=== PATIENT | female | born 1995 | race Caucasian/White ===

== ENCOUNTER 2018-04-02 03:48 | Emergency (ER) | payer SELFPAY ==
[2018-04-02 03:51] VITALS: BP 156/83; PULSE 98; RESP 14; TEMP 36.9; O2SAT 98; BMI 40.6
--- NOTE | 2018-04-02 03:56 | ED.RN ---
no old ekg's in [facility]
--- NOTE | 2018-04-02 04:14 | CT_ITS ---
STUDY: CTA CHEST REASON FOR EXAM: Female, 23 years old. New-onset of shortness of breath. 27 weeks . RADIATION DOSAGE (If Supplied By Facility): CTDIvol = ( 12.80 ) mGy, DLP = ( 620.84 ) mGycm TECHNIQUE: The examination was performed with the intravenous administration of 100ML ml of Isovue 370 contrast material. Post-processing of the angiographic images was performed, with multiplanar reformation and 3D reconstruction. Individualized dose optimization techniques were used for this CT. COMPARISON: None. FINDINGS: Normal enhancement of the main pulmonary artery and right and left pulmonary arteries. Normal enhancement of the bilateral peripheral pulmonary arteries. There is no demonstrated pulmonary embolism accounting for artifact. Normal thoracic aorta and visualized great vessels. There is no demonstrated aortic dissection. Normal heart and pericardium. Normal mediastinum. Normal hilar regions. Normal visualized trachea and bronchi. The lungs are well expanded. Normal pulmonary parenchyma. Hazy density throughout the lungs is very likely related to a decreased depth of inspiration. The lungs are clear on the regional rehabilitation director view. Normal pleura. Normal chest wall structures. Normal osseous structures. A small portion of the gestational sac and fetus are visualized in the abdomen. CT/CTA Chest W/WO Contrast IMPRESSION: Normal CTA chest examination, without a demonstrated pulmonary embolism or arterial dissection. Lungs are hypoinflated. Appearance of the lung is very likely related to subsegmental atelectasis and not pulmonary edema. Electronically Signed: Evangelista Gan MD at 5:37 EDT , Service support ,
--- NOTE | 2018-04-02 04:15 | ED.VISSUMM ---
- ER Visit Summary Date of Service: 04/02/18 Chief Complaint: Chest pain History of Present Illness: The patient is a 23 F presenting with chest pain, shortness of breath which started around 3 AM. She believes it lasted approximately 30 minutes. She states she is having pain with deep breathing. She has had similar pain with acid reflux in the past. She takes a natural remedy for acid reflux. She is 27 weeks . She denies abdominal pain. Denies vaginal bleeding. She is . She states the pain is starting to subside. Denies recent travel, recent surgery, or history of blood clots. Denies other complaints. Physical Examination: Vitals are stable. Patient is afebrile. Alert no acute distress. HEENT exam is unremarkable. Neck is supple. Lungs are clear and equal bilaterally. Heart is regular rate and rhythm. Abdomen is soft gravid nontender Extremities are unremarkable. Skin is warm and dry. No focal neurologic deficit. Remainder of exam is unremarkable. Emergency Department Course and Treatment: EKG is sinus rate of 85 with no acute ischemic changes. heart tones 134. CTA chest shows normal CTA chest examination, without a demonstrated pulmonary embolism or arterial dissection. Patient is resting comfortably on repeat evaluation. She is advised to follow-up with her MANAGEMENT ACCOUNTS MANAGER. Advised return to ED for any worsening complaints. Disposition: Discharged home Impression: Atypical chest pain This note was generated with [employer] dictation software. It may contain incorrect words, spelling, and punctuation that were not noted in review of the chart prior to signing ED Disposition - Plan for ED Patient: Chief Complaint: Chest Pain Referrals: [facility] Doctor,Out of [NON-STAFF] -
--- NOTE | 2018-04-02 05:50 | ED.DEP ---
ED Disposition - Plan for ED Patient: Chief Complaint: Chest Pain Instructions: ED Chest Pain Atypical Unkn Cause Referrals: [facility],Out of [NON-STAFF] -
[2018-04-02 05:56] VITALS: BP 135/74; PULSE 66; RESP 15; O2SAT 97
== END 2018-04-02 05:57 | disposition home or self-care (01) ==
PROVIDERS: Emergency Provider Emergency Medicine; Family Provider Family Medicine; PCP Family Medicine
DX: O26.892 Other specified pregnancy related conditions, second trimester (principal); R07.89 Other chest pain; Z3A.27 27 weeks gestation of pregnancy
CPT/HCPCS: 71275; 93005; 99285; Q9967; A4216

== ENCOUNTER 2018-10-09 03:58 | Emergency (ER) | payer SELFPAY ==
[2018-10-09 03:59] VITALS: BP 143/78; PULSE 94; RESP 18; TEMP 36.5; O2SAT 94; BMI 35.7
--- NOTE | 2018-10-09 04:12 | US_ITS ---
STUDY: ABDOMINAL ULTRASOUND - RIGHT UPPER QUADRANT REASON FOR VISIT: Female, 23 years old. Pain. TECHNIQUE: Ultrasound evaluation of the right upper quadrant was performed with real-time and static selby-scale imaging. TECHNICAL QUALITY: Limited. Examination limited by bowel gas. COMPARISON: CTA chest 04/02/2018. FINDINGS: Liver: The liver measures 16.1 cm. There is normal echogenicity of the liver. The bile ducts are within normal limits. There is hepatic color flow. The direction of portal flow is hepatopetal. There is no demonstrated mass lesion. Gallbladder: Normal distended gallbladder. The gallbladder wall measures 2.0 mm. There is a negative sonographic Bee's sign. There is no pericholecystic fluid. There are multiple gallstones and sludge in the gallbladder, including at least one stone that is in the gallbladder neck. Common Bile Duct (C.B.D.): The common bile duct measures 9.0 mm. Pancreas: . Not well visualized. Right Kidney: Normal size of the right kidney. The right kidney measures 10.1 x 5.1 x 5.2 cm. Normal renal cortex. The right cortex measures 1.3 cm. There is no demonstrated renal mass or cyst. There is no right hydronephrosis. US/Gallbladder IMPRESSION: Gallstones and sludge in an otherwise normal-appearing gallbladder. Dilated common bile duct, measuring 9 mm. Electronically Signed: Luis M Castellon MD at 7:08 EST , Service support ,
[2018-10-09] MEDS: Ondansetron 4 MG/2 ML Vial IV (04:23)
[2018-10-09] MEDS: Ketorolac 30 MG/ML Syringe IV (04:23)
[2018-10-09] MEDS: 0.9% Normal Saline 1,000 ML 1000 ML IV (04:23)
[2018-10-09 04:49] LABS: Absolute Lymphocyte Count 0.59 X10^3/ul (0.83-4.51); Absolute Neutrophil Count 4.5 X10^3/uL (2.0-7.7); Basophil# 0.01 X10^3/uL; Basophil% 0.2 % (0-1); Eosinophil# 0.04 X10^3/uL; Eosinophils% 0.7 % (0-5); Hematocrit 41.9 % (37-47); Hemoglobin 14.4 g/dl (12.0-15.0); Lymphocyte # 0.59 X10^3/ul (4.0); Lymphocyte % 10.4 % (19-41); Mean Corp Hgb Conc 34.4 g/gl (32-36); Mean Corpuscular Hgb 29.5 pg (27.0-32.0); Mean Corpuscular Volume 85.9 fL (81-99); Monocyte# 0.52 X10^3/uL; Monocyte% 9.1 % (0-10); Neutrophil # 4.51 X10^3/uL (2.7-7.7); Neutrophil % 79.2 % (47-70); Platelet Count 198 K/mm3 (150-450); RBC Distribution Width CV 13.9 % (11.6-14.6); RBC Distribution Width SD 43.6 fl (35.1-43.9); Red Blood Count 4.88 M/mm3 (4.2-5.4); White Blood Count 5.7 K/mm3 (4.4-11.0)
[2018-10-09 04:55] LABS: Differential Indicated SCAN CRITERIA MET; POSITIVE COUNT NO; POSITIVE DIFFERENTIAL YES; POSITIVE MORPHOLOGY NO
[2018-10-09 06:04] LABS: AST(SGOT) 660 U/L (15-37); Alanine Aminotransfer ALT/SGPT 804 U/L (13-56); Alkaline Phosphatase 206 U/L (45-117); Anion Gap 11 (5-15); BUN 10 mg/dL (7-18); BUN/Creat Ratio 15.6 RATIO (10-20); Chloride 108 mmol/L (98-107); Creatinine, Serum 0.64 mg/dL (0.55-1.02); EST Glomerular Filtration Rate 123 mL/min (>60); Est Glom Filt Rate - Afr Amer 149 mL/min (>60); Estimated Creatinine Clearance 109.97 ml/min; Glucose 109 mg/dL (74-106); Lipase 180 U/L (73-393); Potassium 3.7 mmol/L (3.5-5.1); Sodium Level 142 mmol/L (136-145)
[2018-10-09] MEDS: Morphine 4 MG/ML Syringe IV (07:35)
[2018-10-09 07:36] VITALS: BP 153/93; PULSE 76; RESP 16; O2SAT 100
--- NOTE | 2018-10-09 08:00 | ED.VISSUMM ---
- ER Visit Summary Date of Service: 10/09/18 Chief Complaint: Abdominal pain History of Present Illness: The patient is a 23 F who presents with abdominal pain. It began yesterday. It is isolated to the right upper quadrant. It was a 10 out of 10 yesterday morning but has actually improved since then. It is currently 6 out of 10. No nausea vomiting or diarrhea. Physical Examination: Afebrile vitals unremarkable Moist mucous membranes Heart regular rate and rhythm Lungs are clear On the soft nondistended normal bowel sounds she does have right upper quadrant tenderness without guarding rebound no Bee sign Test Results: Labs notable for total bilirubin 4.7, alkaline phosphatase 206, ALT 804, AST 660. Right upper quadrant ultrasound shows a dilated common bile duct at 9 mm as well as gallstones and biliary sludge with an otherwise normal appearing gallbladder. Emergency Department Course and Treatment: Patient was treated here with IV fluids morphine Zofran. She did require a second dose of morphine. Her labs are concerning for biliary obstruction. With dilated common bile duct I am concerned for choledocholithiasis. I spoke to our general surgeon store operations manager. Dr. Jorge who is the only surgeon who performs ERCPs is unavailable until next week so Dr. Cohen committed transfer. She accepted at [facility] under the medical service Treatment Plan: [] Disposition: Transfer Impression: Cholelithiasis Biliary obstruction This note was generated with [employer] dictation software. It may contain incorrect words, spelling, and punctuation that were not noted in review of the chart prior to signing ED Disposition - Plan for ED Patient: Referrals: Darci Perez MD [Primary Care Provider] -
--- NOTE | 2018-10-09 08:03 | ED.DCSUM_ITS ---
- ER Visit Summary Date of Service: 10/09/18 Chief Complaint: Abdominal pain History of Present Illness: The patient is a 23 F who presents with abdominal pain. It began yesterday. It is isolated to the right upper quadrant. It was a 10 out of 10 yesterday morning but has actually improved since then. It is currently 6 out of 10. No nausea vomiting or diarrhea. Physical Examination: Afebrile vitals unremarkable Moist mucous membranes Heart regular rate and rhythm Lungs are clear On the soft nondistended normal bowel sounds she does have right upper quadrant tenderness without guarding rebound no Bee sign Test Results: Labs notable for total bilirubin 4.7, alkaline phosphatase 206, ALT 804, AST 660. Right upper quadrant ultrasound shows a dilated common bile duct at 9 mm as well as gallstones and biliary sludge with an otherwise normal appearing gallbladder. Emergency Department Course and Treatment: Patient was treated here with IV fluids morphine Zofran. She did require a second dose of morphine. Her labs are concerning for biliary obstruction. With dilated common bile duct I am concerned for choledocholithiasis. I spoke to our general surgeon environmental health sanitarian. Dr. Jorge who is the only surgeon who performs ERCPs is unavailable until next week so Dr. Cohen committed transfer. She accepted at [facility] under the medical service Treatment Plan: [] Disposition: Transfer Impression: Cholelithiasis Biliary obstruction This note was generated with [email or web address] dictation software. It may contain incorrect words, spelling, and punctuation that were not noted in review of the chart prior to signing ED Disposition - Plan for ED Patient: Referrals: Darci Perez MD [Primary Care Provider] -
[2018-10-09 08:42] VITALS: BP 136/69; PULSE 74; RESP 16; O2SAT 97
== END 2018-10-09 09:17 | disposition short-term general hospital (02) ==
LOC: ED 04:19
PROVIDERS: Emergency Provider Emergency Medicine; Family Provider Family Medicine; PCP Family Medicine
DX: K80.21 Calculus of gallbladder without cholecystitis with obstruction (principal)
CPT/HCPCS: 36415; 76705; 80053; 83690; 85025; 96361; 96374; 96375; 99284; J7030; A4216; J2405

== ENCOUNTER 2018-10-10 21:17 | Inpatient (IN) | payer SELFPAY ==
[2018-10-09 03:59] VITALS: BMI 35.7
[2018-10-10 21:19] VITALS: BP 149/90; PULSE 77; RESP 12; TEMP 36.8; O2SAT 99; BMI 35.6
--- NOTE | 2018-10-10 21:59 | ED.DCSUM_ITS ---
- ER Visit Summary Date of Service: 10/10/18 Chief Complaint: Abdominal pain History of Present Illness: The patient is a 23 F presents to the emergency department abdominal pain. The patient has had a complex recent medical history. She was actually seen here about 36 hours ago. At that time, she was found to have choledocholithiasis and elevated liver function tests. The patient was transferred to [facility]. This morning, she underwent MRCP. This demonstrated a normal duct and looked like she had passed her obstruction. She states she was pain-free. She was discharged home and was told to follow-up outpatient with surgery. She has not made any appointments. She states that about 2 hours ago, she had sudden return of the pain. She describes it as sharp and stabbing in the midepigastric area in the right upper quadrant. She was mildly nauseated without vomiting. She denies any fevers or chills. The patient is otherwise healthy. She has no significant medical history. She had no prior surgeries. Physical Examination: Vital signs reviewed General: Well-nourished, well-developed Head: Normocephalic, atraumatic Eyes: Pupils equal and reactive, extraocular muscles intact Neck, supple, no lymphadenopathy Heart: Regular rate and rhythm Respiratory: No distress, clear bilaterally Abdomen: Soft, tender in the midepigastric area to the right upper quadrant, nondistended, no peritoneal signs Back: Nontender Extremities: Nontender, no edema, no cords Skin: Normal color no rash Neuro: Alert and oriented, no focal or lateralizing deficits Test Results: [] Emergency Department Course and Treatment: The patient presents with abdominal pain. I did review her MRCP and there was no evidence of obstruction. The pain returned. I did discuss this with Dr. Tejada who actually is evaluated patient in the emergency department. The pain will be to admit the patient for antibiotics, fluids, pain medication with plan for Cholecystectomy on Saturday. Patient was comfortable with this plan of care. Treatment Plan: [] Disposition: [] Impression: Admission 1. Cholecystitis This note was generated with [employer] dictation software. It may contain incorrect words, spelling, and punctuation that were not noted in review of the chart prior to signing ED Disposition - Plan for ED Patient: Referrals: Darci Perez MD [Primary Care Provider] -
--- NOTE | 2018-10-10 22:25 | HP.PCM_ITS ---
History and Physical Date of Admission: 10/10/18 Chief Complaint: abdominal pain History of Present Illness: 23 y/o WF presents with abdominal pain - right upper quadrant. Has noted intermittent abdominal pain as above for about a year, but has been progressively worsening and becoming more frequent Worsened in the past several days. Presented to ED at another facility. From the family - she was found to have cholelithiasis but there was concern for CBD obstruction. A MRCP was obtained which revealed no CBD obstruction. She was therefore discharged to follow up with a surgeon. The patient presented to [facility] ED, stating that the pain was very severe. Denies nausea/emesis. Denies fevers. Past Medical History: denies major medical illnesses Past Surgical History: denies Medications: denies taking chronic medications, was placed on antiacid medications for the above condition Allergies: Has no known drug allergies Social history: TOB use denies Lives with Review of Systems: General - denies fevers, denies weight loss, denies anorexia Cardiovascular denies chest pain, denies history of heart attack, denies heart problems Pulmonary denies shortness of breath, denies coughing up blood Gastrointestinal as per HPI, denies blood in stools Neurological denies numbness/weakness of extremities, denies seizures Genitourinary denies burning with urination, denies blood in urine Hematological denies spontaneous/prolonged bleeding, Skin denies open non healing wounds, Musculoskeletal denies history of fractures, denies arthritis Endocrine denies diabetes Psychological denies suicidal ideation, denies hallucinations Physical examination: Vital signs Temp 97.7F HR 58 BP 137/84 RR 16 General WD/WN WF in no apparent distress, alert and oriented, not septic appearing HEENT Normocephalic. EOM intact with sclera clear and no icterus noted. Neck is supple with no jugular venous distention noted. Trachea is midline. Lungs clear to auscultation. normal breath sounds. No rales/rhonchi/wheezing noted. No labored breathing noted, such as retractions. Heart normal S1 and S2 auscultated. No rubs/clicks/murmurs noted. Normal size and location by auscultation. Abdomen soft but tender in right upper quadrant with Bee's sign. Normal bowel sounds area auscultated. No distention or tympany noted. Extremities no calf tenderness noted. No pitting edema noted. Genitourinary/Rectal deferred Skin normal skin integrity. Neurological gait normal, no focal deficits noted Psychological normal affect, patient is calm and appropriate Impression: acute cholecystitis (based on examination and severe pain) with cholelithiasis Discussion/Plan: I have discussed the above with the patient and her who is present with her. The patient has signs/symptoms of acute cholecystitis with cholelithiasis. I have offered the patient the procedure of laparoscopic cholecystectomy with cholangiograms I told them that it will not be done tonight, that I will admit the patient for overnight hydration and pain control and I will reassess the patient in the morning. If not urgent - then would proceed to surgery on Saturday. They understand and agree. I have answered all questions to the patient?s satisfaction and the patient has no further questions.
[2018-10-10] MEDS: Ondansetron 4 MG/2 ML Vial IV (22:37)
[2018-10-10] MEDS: 0.9% Normal Saline 1,000 ML 1000 ML IV (22:37)
[2018-10-10] MEDS: Morphine 4 MG/ML Syringe IV (22:37)
[2018-10-10 22:47] LABS: Absolute Lymphocyte Count 1.53 X10^3/ul (0.83-4.51); Absolute Neutrophil Count 6.7 X10^3/uL (2.0-7.7); Basophil# 0.03 X10^3/uL; Basophil% 0.3 % (0-1); Eosinophil# 0.13 X10^3/uL; Eosinophils% 1.4 % (0-5); Hematocrit 41.1 % (37-47); Lymphocyte # 1.53 X10^3/ul (4.0); Lymphocyte % 16.8 % (19-41); Mean Corp Hgb Conc 34.1 g/gl (32-36); Mean Corpuscular Hgb 29.7 pg (27.0-32.0); Mean Corpuscular Volume 87.3 fL (81-99); Mean Platelet Vol. 10.8 fl (6.2-12.0); Monocyte# 0.73 X10^3/uL; Neutrophil # 6.69 X10^3/uL (2.7-7.7); Neutrophil % 73.4 % (47-70); Platelet Count 181 K/mm3 (150-450); RBC Distribution Width CV 13.9 % (11.6-14.6); RBC Distribution Width SD 44.5 fl (35.1-43.9); Red Blood Count 4.71 M/mm3 (4.2-5.4); White Blood Count 9.1 K/mm3 (4.4-11.0)
[2018-10-10 23:04] LABS: POSITIVE COUNT NO; POSITIVE DIFFERENTIAL NO; POSITIVE MORPHOLOGY NO
[2018-10-10 23:10] LABS: AST(SGOT) 148 U/L (15-37); Alanine Aminotransfer ALT/SGPT 549 U/L (13-56); Albumin, Serum 3.9 g/dL (3.2-5.0); Alkaline Phosphatase 266 U/L (45-117); Anion Gap 11 (5-15); BUN 11 mg/dL (7-18); BUN/Creat Ratio 16.3 RATIO (10-20); Bilirubin, Direct 3.23 mg/dL (0.00-0.30); Chloride 105 mmol/L (98-107); Creatinine, Serum 0.68 mg/dL (0.55-1.02); EST Glomerular Filtration Rate 116 mL/min (>60); Est Glom Filt Rate - Afr Amer 141 mL/min (>60); Estimated Creatinine Clearance 103.51 ml/min; Globulin 3.8 g/dL (2.2-4.2); Glucose 85 mg/dL (74-106); Lipase 113 U/L (73-393); Potassium 3.5 mmol/L (3.5-5.1); Protein, Total 7.7 g/dL (6.4-8.2); Sodium Level 139 mmol/L (136-145)
[2018-10-10 23:15] VITALS: BP 142/73; PULSE 74; RESP 16; O2SAT 99
[2018-10-10 23:24] VITALS: BMI 35.6; BMI 35.7
[2018-10-10 23:40] VITALS: BP 137/84; PULSE 58; RESP 16; TEMP 36.5; O2SAT 100
[2018-10-10] MEDS: HYDROcodone Bitartrate/Apap 5/325 Tablet PO (23:46)
[2018-10-11 03:48] VITALS: BP 102/61; PULSE 56; RESP 16; TEMP 36.4; O2SAT 97
[2018-10-11 09:27] VITALS: BP 130/72; PULSE 55; RESP 18; TEMP 36.7; O2SAT 100
--- NOTE | 2018-10-11 09:37 | PCM.PN.SRG ---
Subjective: patient feels much improved, feels hungry - Physical Exam General: Alert, Oriented x3 Oral: Moist Mucosa Neck: Supple Lungs: Normal air movement Abdomen: Bowel Sounds Present, Soft Vital Signs Temp Pulse Resp BP Pulse Ox 98.1 F 55 L 18 130/72 H 100 10/11/18 09:27 10/11/18 09:27 10/11/18 09:27 10/11/18 09:27 10/11/18 09:27 Oxygen Delivery Method Room Air Weight: 88.5 kg Body Mass Index (BMI) 35.6 Intake and Output for Last 24 Hours 10/09/18 10/10/18 10/11/18 23:59 23:59 23:59 Intake Total 1340 / 1340 Output Total 400 / 400 Balance 940 / 940 Laboratory Tests Past 24 Hrs 10/10/18 10/10/18 22:37 22:37 WBC 9.1 RBC 4.71 Hgb 14.0 Hct 41.1 MCV 87.3 MCH 29.7 MCHC 34.1 RDW 13.9 RDW Differential 44.5 H Plt Count 181 MPV 10.8 Immature Gran % (Auto) 0.100 Neut % (Auto) 73.4 H Lymph % (Auto) 16.8 L Branch % (Auto) 8.0 Eos % (Auto) 1.4 Baso % (Auto) 0.3 Absolute Neuts (auto) 6.7 Absolute Lymphs (auto) 1.53 Total Counted Not Reportable Sodium 139 Potassium 3.5 Chloride 105 Carbon Dioxide 23.0 Anion Gap 11 BUN 11 Creatinine 0.68 Estim Creat Clear Calc 103.51 Est GFR (MDRD) Af Amer 141 Est GFR (MDRD) Non-Af 116 BUN/Creatinine Ratio 16.3 Glucose 85 Calcium 9.0 Total Bilirubin 5.60 H Direct Bilirubin 3.23 H AST 148 H ALT 549 H Alkaline Phosphatase 266 H Total Protein 7.7 Albumin 3.9 Globulin 3.8 Lipase 113 Medical Necessity - Tobacco Use Smoking Status: Never smoker Assessment/Plan Impression: cholecystitis with cholelithiasis - no obstruction, severe pain due to biliary colic but patient may have chronic cholecystitis Plan: I have discussed above with patient and her . Given the fact that she feels much improved, I have offered for the patient to be discharged home and then return on Saturday for laparoscopic cholecystectomy. Patient wishes to stay in the hospital, because she is concerned about the pain returning and states that she could not tolerate that. There is no urgency to this surgery, can wait until Saturday. Will empirically begin IV antibiotics. Advance to full diet, continue IV pain meds, encouraged ambulation and incentive spirometry
--- NOTE | 2018-10-11 11:01 | CASEMGMT ---
Social Work Self referral for patient noting to be self pay. This child protective services social worker reviewed chart and then met with patient and patient spouse in room. Patient reporting to identify at [facility] and to have no financial concerns and reporting that all medical bills will be covered by [facility] through the cheondoism. Patient reporting to plan to be in hospital at least until Saturday when patient is scheduled for surgery. Patient reporting to have a 4 month year old son at home and that the in-laws are providing care for the . Patient reporting no concerns and plans to discharge to home with family at time of discharge. Patient identifying no needs at this time. Support given. Lili Mooney MSW, ANDREA
[2018-10-11] MEDS: Lactated Ringers 1,000 ML 75 ML IV (12:51)
[2018-10-11] MEDS: HYDROcodone Bitartrate/Apap 5/325 Tablet PO ×2 (13:13→18:45)
[2018-10-11 13:50] VITALS: BP 132/90; PULSE 83; RESP 18; TEMP 36.6; O2SAT 99
[2018-10-11 17:21] VITALS: BP 137/84; PULSE 56; RESP 18; TEMP 36.6; O2SAT 98
[2018-10-11] MEDS: Morphine 2 MG/ML Syringe IV (20:14)
[2018-10-11 21:14] VITALS: BP 129/70; PULSE 78; RESP 16; TEMP 36.8; O2SAT 98
[2018-10-12] MEDS: Lactated Ringers 1,000 ML 75 ML IV ×2 (03:38→21:46)
[2018-10-12 03:42] VITALS: BP 128/75; PULSE 65; RESP 16; TEMP 36.3; O2SAT 98
[2018-10-12 06:16] LABS: AST(SGOT) 105 U/L (15-37); Alanine Aminotransfer ALT/SGPT 375 U/L (13-56); Alkaline Phosphatase 254 U/L (45-117); Bilirubin, Direct 3.14 mg/dL (0.00-0.30); Globulin 3.3 g/dL (2.2-4.2); Protein, Total 6.3 g/dL (6.4-8.2)
[2018-10-12 08:15] VITALS: BP 147/103; PULSE 66; RESP 16; TEMP 36.6; O2SAT 97
[2018-10-12] MEDS: HYDROcodone Bitartrate/Apap 5/325 Tablet PO ×4 (08:18→21:52)
--- NOTE | 2018-10-12 10:32 | PCM.PN.SRG ---
Subjective: Patient feeling well, still intermittent twinges of abdominal pain Feels hungry, had bowel movement this morning - first in a few days - Physical Exam General: Alert Oral: Moist Mucosa Neck: Supple Lungs: Normal air movement Cardiovascular: Regular rate Abdomen: Bowel Sounds Present, Soft - tender in right upper quadrant Vital Signs Temp Pulse Resp BP Pulse Ox 97.9 F 66 16 147/103 H 97 10/12/18 08:15 10/12/18 08:15 10/12/18 08:15 10/12/18 08:15 10/12/18 08:15 Oxygen Delivery Method Room Air Weight: 88.5 kg Body Mass Index (BMI) 35.6 Intake and Output for Last 24 Hours 10/10/18 10/11/18 10/12/18 23:59 23:59 23:59 Intake Total 3774 / 3774 454 / 454 Output Total 800 / 800 Balance 2974 / 2974 454 / 454 Laboratory Tests Past 24 Hrs 10/12/18 05:45 Total Bilirubin 4.90 H Direct Bilirubin 3.14 H AST 105 H ALT 375 H Alkaline Phosphatase 254 H Total Protein 6.3 L Albumin 3.0 L Globulin 3.3 Medical Necessity - Tobacco Use Smoking Status: Never smoker Assessment/Plan Impression: cholecystitis with cholelithiasis - no obstruction, severe pain due to biliary colic but patient may have chronic cholecystitis Plan: I have discussed above with patient. Still with elevated LFTs, despite normal MRCP. May require ERCP after surgery. Will proceed to lap cas with IOC tomorrow, if IOC positive for stones, will have ERCP done while she is still inpatient. Advance to regular diet but NPO tomorrow am in anticipation for surgery Continue IV antibiotics encouraged ambulation and incentive spirometry
[2018-10-12 12:24] VITALS: BP 139/87; PULSE 67; RESP 16; TEMP 36.6; O2SAT 98
[2018-10-12] MEDS: Morphine 2 MG/ML Syringe IV ×2 (14:31→19:40)
[2018-10-12 17:24] VITALS: BP 137/88; PULSE 68; RESP 16; TEMP 36.6; O2SAT 98
[2018-10-12 21:53] VITALS: BP 131/73; PULSE 82; RESP 18; TEMP 36.5; O2SAT 96
[2018-10-13] VITALS (11 sets, daily range): BP systolic 131–155; BP diastolic 71–94; PULSE 60–84; RESP 14–16; TEMP 34.7–36.9; O2SAT 92–99; BMI 35.6
[2018-10-13] MEDS: 0.9% NaCl Peripheral Flush Adult/Peds IV (01:10)
[2018-10-13] MEDS: Morphine 2 MG/ML Syringe IV ×4 (01:10→20:01)
[2018-10-13 09:43] LABS: Internal QC Validated? YES +Cl - CLEAR BKGD; Pregnancy, Urine Negative Negative
[2018-10-13] MEDS: Ondansetron 4 MG/2 ML Vial IV (12:28)
--- NOTE | 2018-10-13 14:00 | GALL_PTH ---
PATIENT: KEIKO FOWLER LOC: MS2 U#:[id number] AGE/SX: 23/F ROOM: MS218 RE10/10/[address]: Dr. Francie Tejada MD : 1995 BED: 1 DIS: 10/15/2018 SPEC #: [id number] RECD: 10/14/18 08:23 STATUS: ZACH REQ #: [id number] MARY KAET: 10/13/18 14:[address]: Francie Tejada DEPT: SURGICAL PATHOLOGY RECD BY: Kee Scherer ENTERED: 10/14/18 12:17 SP TYPE: MAYTE SLAUGHTER DR: Dr. Darci Perez MD Tissues: Gallbladder, NOS Procedures: Surgery Specimen Level III HEADER OPERATION: Laparoscopic cholecystectomy with IOC PRE-OP DIAGNOSIS: Acute cholecystitis TISSUE SUBMITTED: Gallbladder MICROSCOPIC DIAGNOSIS Gallbladder, cholecystectomy: Chronic cholecystitis and cholelithiasis. SJ:mani 10/15/18 MICROSCOPIC DESCRIPTION Slides are reviewed. GROSS DESCRIPTION Received is one container labeled with the patient's name and designated gallbladder. The specimen consists of a gallbladder measuring 10 cm in length and up to 4 cm in diameter. The external surface is pink-zamudio, smooth and glistening for the most part. Focally it is granular, hemorrhagic and contains cautery artifact. The gallbladder contains green-yellow mucoid bile and six variable sized mulberry, yellowish-green stones measuring in aggregate 1.5 x 1 x 0.6 cm and 0.2 to 0.5 cm in greatest dimension. The mucosa is bile-stained and without any mass lesions. The gallbladder wall measures up to 0.2 cm in thickness. Equipment Hire Manager sections from the gallbladder and the cystic duct are submitted in one cassette. / SJ:mani 10/14/18 TC:3 CPT: 39412
--- NOTE | 2018-10-13 14:00 | RAD_ITS ---
STUDY: INTRAOPERATIVE INTRA CHOLANGIOGRAM. REASON FOR EXAM: Female, 23 years old. Laparoscopic cholecystectomy. FLUOROSCOPY TIME (if supplied): (0:02) minutes/seconds TECHNIQUE: An intraoperative cholangiogram was performed. COMPARISON: None. FINDINGS: Dilated common bile duct. No filling of the duodenum. A distal common bile duct obstruction should be ruled out. RAD/Cholangiogram/ O R,Initial IMPRESSION: Dilated common bile duct. No contrast is seen entering the duodenum. Distal ductal obstruction should be ruled out. Electronically Signed: Chago Mccormick MD at 16:03 EST , Service support ,
[2018-10-13] MEDS: Bupiv/Epi 0.25% 30 ML Vial (15:59)
--- NOTE | 2018-10-13 16:02 | OP.PCM_ITS ---
Report of Operation Date of Procedure: 10/13/18 Pre-Operative Diagnosis: cholelithiasis, elevated LFTs Post-Operative Diagnosis: same, CBD obstruction by IOC Surgery/Procedure Performed:: laparoscopic cholecystectomy with cholangiograms Description of Surgical Findings:: IOC - no flow into duodenum director of special services: Teodoro Thompson Type of Anesthesia:: General Anesthesiologist: Chai Irwin Specimen's removed: gallbladder and contents Estimated Blood Loss (mL): < 10 Fluids Replaced: 800 ml RL Description of Procedure: After informed consent was given, the patient was brought to the Operating Room. Appropriate time out protocol was followed. She was then placed in the supine position. The patient was then placed under general endotracheal anesthesia. The abdomen was then prepped with a sterile surgical skin preparation and sterile surgical drapes were placed. The superio-umbilical skin fold was grasped with penetrating clamps and the skin and subcutaneous tissues were infiltrated with local anesthetic. A skin incision was then made with a 15 blade scalpel. The anterior abdominal wall was elevated and a Veress needle was carefully inserted into the intraabdominal cavity. It was checked to be in the proper position with a normal saline drop test. A CO2 pneumoperitoneum was then created. Once this was achieved, then the Veress needle was removed and an 11mm trocar was placed in its stead. A 10mm laparoscope was then inserted into the trocar and careful attention was directed to the intraabdominal contents. There was no evidence of injury to any intraabdominal organs from insertion of the Veress needle or the trocar. Under direct visualization, a 5mm subxiphoid trocar and two lateral 5mm right subcostal trocars were placed. The skin and subcutaneous tissues at these sites were infiltrated with local anesthetic prior to placement of these trocars. Attention was then directed to the right upper quadrant of the abdomen. The gallbladder was grossly distended and also the wall was edematous. To be able to grasp the gallbladder, a needle aspirator was placed in the gallbladder to aspirate out its contents. Then graspers were placed in the lateral trocars to grasp the distal aspect of the gallbladder and direct it cephalad and to grasp the gallbladder at Dias?s pouch and direct it laterally. Dissection then began on the proximal gallbladder continuing down to the area of the triangle of Calot to bluntly dissect out the cystic duct. The neck of the gallbladder was identified and blunt dissection continued to dissect out a segment of the cystic duct. A clip was then placed on the neck of the gallbladder. A small ductotomy was then made. A Ranfac catheter was brought in through a separate skin incision and placed into the cystic duct. An intraoperative cholangiogram was performed under fluoroscopy. The xray revealed complete obstruction distally of the CBD with no flow into the duodenum. The Ranfac catheter was then removed and two clips were placed proximal to the ductotomy and the cystic duct was then transected. The cystic artery was visualized and bluntly isolated and then two clips were placed proximally and one clip distally and then it was transected between the proximal and distal clips. The gallbladder was then from the liver bed using electrocautery and thus able to be brought out of the umbilical port. It was then forwarded to pathology for analysis. The liver bed was carefully examined. There was no evidence of bile leakage or bleeding. The cystic duct stump and cystic artery stump had their clips intact and there was no evidence of bile leakage or bleeding. A 15FR round drain was brought in via one of the lateral trocars. The drainage was placed at the gallbladder fossa site. The remainder of the abdomen appeared grossly normal. The CO2 was released and all trocars removed intact. The drain was sutured to the abdominal wall skin with nylon suture. The periumbilical fascia was approximated with a [id number] 0 vicryl suture. All skin incisions were closed with 4-0 monocryl in a subdermal fashion. Cavilol and Steristrips were used to reinforce the skin closure. Sterile dressings were applied to all wounds. The patient was extubated and brought to the Recovery Room in stable condition. - Complications none noted - Admit VTE Documentation VTE Present on Admission: Yes VTE Mechan Device Prophylaxis: SCD's
[2018-10-13] MEDS: Lactated Ringers 1,000 ML 75 ML IV (17:49)
[2018-10-13] MEDS: HYDROcodone Bitartrate/Apap 5/325 Tablet PO (21:35)
[2018-10-14] VITALS (7 sets, daily range): BP systolic 123–141; BP diastolic 67–80; PULSE 64–85; RESP 16–18; TEMP 36.4–36.9; O2SAT 95–100
[2018-10-14] MEDS: HYDROcodone Bitartrate/Apap 5/325 Tablet PO ×2 (05:20→21:11)
[2018-10-14] MEDS: Lactated Ringers 1,000 ML 75 ML IV ×2 (05:26→21:14)
[2018-10-14] MEDS: Morphine 2 MG/ML Syringe IV ×2 (06:44→09:09)
[2018-10-14] MEDS: Ondansetron 4 MG/2 ML Vial IV (06:50)
--- NOTE | 2018-10-14 08:47 | PCM.PN.SRG ---
Subjective: Patient POD #1 s/p laparoscopic cholecystectomy with intraoperative cholangiogram demonstrating acute cholecystitis with CBD obstruction. Has ERCP scheduled for later this morning with Dr. Jorge. Patient awake and sitting at edge of bed at time of visit, notes was up and ambulating in hallway this morning. Had some nausea earlier this morning which was since resolved with medication. She notes some mild soreness at her incision sites and continued soreness in her right upper quadrant. Denies fever or chills overnight. - Physical Exam General: Alert, Oriented x3, Cooperative, No apparent distress, Well developed, Well nourished HEENT: Atraumatic, PERRLA Neck: Supple Lungs: Clear to auscultation, Normal air movement Cardiovascular: Regular rate, Regular Rhythm, Normal S1, Normal S2 Abdomen: Soft, Tender - RUQ, - - dressings in place over incisions c/d/i, drain site c/d/i with yellow serosanguinous output in bulb Vital Signs Temp Pulse Resp BP Pulse Ox 98.2 F 85 18 130/67 H 97 10/14/ 07:36 10/14/18 07:36 10/14/18 07:36 10/14/18 07:36 10/14/18 07:36 Oxygen Flow Rate (L/min) 2 Oxygen Delivery Method Room Air Weight: 195 lb 1.745 oz Body Mass Index (BMI) 35.6 Intake and Output for Last 24 Hours //19 //14 10/ 23:59 23:59 23:59 Intake Total 2456 / 2456 3701 / 3701 1133 / 1133 Output Total 160 / 160 40 / 40 Balance 2456 / 2456 3541 / 3541 1093 / 1093 Laboratory Tests Past 24 Hrs 10/13/ 09:10 Urine Test Negative Medical Necessity - Tobacco Use Smoking Status: Never smoker Assessment/Plan I have reviewed my findings with Dr. Tejada, who also participated in development of the following plan POD #1 s/p laparoscopic cholecystectomy with intraoperative cholangiogram showing distal CBD obstruction Plan for ERCP later today. Remain NPO for procedure Continue ambulation and incentive spirometer
[2018-10-14] MEDS: 0.9% NaCl Peripheral Flush Adult/Peds IV (09:09)
--- NOTE | 2018-10-14 09:58 | NURSING ---
PT TO [facility] FOR ENDO PROCEDURE. REPORT CALLED TO ASHANTI GIRALDO IN [facility].
--- NOTE | 2018-10-14 10:38 | PN_ITS ---
Progress Note Patient had intraoperative cholangiogram yesterday which showed no flow into the duodenum. This is consistent with her elevated LFTs. I do recommend ERCP. I described the procedure in detail to the patient. I included the risks of bleeding, infection, perforation of the bile duct or bowel, pancreatitis. I also explained that a stent may be required. I explained the procedure in detail and all questions were answered. Patient agrees to proceed with ERCP. Fransisco Jorge MD Pager: [facility] [address] [place] [address] Office:
--- NOTE | 2018-10-14 10:55 | RAD_ITS ---
CLINICAL HISTORY: Female, 23 years old. Pain. PROCEDURE: ERCP. FLUOROSCOPY TIME (if supplied): ( ) minutes/seconds TECHNIQUE: Fluoroscopic assistance was provided to Dr. Jorge. 1 fluoroscopic spot film is submitted. COMPARISON: Intraoperative cholangiogram October 13, 2018; right upper quadrant ultrasound October 09, 2018.. FINDINGS: With an endoscope in the second portion of the duodenum, the ampulla of Vater was cannulated for retrograde contrast injection. Contrast was injected. A guidewire is seen in the right hepatic duct and common bile duct. No flow of contrast is seen into the duodenum.. RAD/ERCP Biliary Only IMPRESSION: Correlation with procedure note suggested. Electronically Signed: Chago Mccormick MD at 16:03 EST , Service support ,
--- NOTE | 2018-10-14 11:25 | OP.ENDO_ITS ---
10/14/2018 Darci Perez Re : ERCP procedure for Mary Ann Soares Dear Ana This procedure was performed on Sunday, October 14, 2018. My impressions and recommendations are as follows: Impressions : - The entire main bile duct was dilated. - A biliary sphincterotomy was performed. - The biliary tree was swept and sludge was found. Recommendations : - [facility] to [facility]. My findings are described in the full procedure note, which is enclosed. If I can be of further assistance, please feel free to contact me at Doctor phone number(s): , Work: . Sincerely, Fransisco Jorge MD 10/14/2018 11:25:16 AM This report has been signed electronically.
--- NOTE | 2018-10-14 12:27 | NURSING ---
PT RETURN FROM ENDO
--- NOTE | 2018-10-14 13:29 | CASEMGMT ---
RN MARY ALICE Note: Intro role of CM to patient and her in room. Per patient, she plans to return home on discharge. [facility] Retail pharmacy preferred. Pt denied need for Home Health, has family assistance. States she will have transportation to follow up appointments. DC PLAN: Home on discharge. Gabby VARELA RN ACM
[2018-10-15 02:00] VITALS: BP 121/65; PULSE 60; RESP 16; TEMP 36.8; O2SAT 96
[2018-10-15] MEDS: HYDROcodone Bitartrate/Apap 5/325 Tablet PO (06:48)
[2018-10-15 07:35] VITALS: BP 128/82; PULSE 62; RESP 18; TEMP 36.7; O2SAT 97
--- NOTE | 2018-10-15 07:37 | PCM.DC.GB ---
Discharge Diet: No Restrictions - drink plenty of fluids Discharge Activity: Return to Normal Activity, May not drive while taking narcotic pain medications. Lifting Restrictions: no lifting greater than 20 pounds for 2 weeks Call your doctor if your incision/area has: Continuous Slow Oozing, Foul Smelling Discharge Call your doctor if you observe: Fever of 101 or Higher Additional Dressing/Incision Instructions:: Leave dressings in place. May get wet in shower. Do not soak - no tub baths/swimming Additional Instructions: Recommended pain medication regimen: can take 600 mg ibuprofen then in three hours take 650 mg of acetaminophen, then in three hours take 600 mg of ibuprofen, then in three hours take 650 mg of acetaminophen, and so on for a few days take narcotic medication only for breakthrough pain and at night best to take narcotic medication after breast feeding Allergies/Adverse Reactions: Allergies No Known Allergies Allergy (Verified 10/10/18 21:18) Medications to take at Discharge Sucralfate [Carafate] 1 gm PO 4X/DAY 10/10/18 Hydrocodone Bitart/Apap 5-325 [[place] 5MG-325MG] 1 tab PO Q12H PRN PRN 5 Days #10 tab 10/15/18 The following prescriptions were given: Hydrocodone Bitart/Apap 5-325 [[place] 5MG-325MG] 1 tab PO Q12H PRN PRN 5 Days #10 tab PRN Reason: Pain Primary Care Physician: Darci Perez MD [Primary Care Provider] - Test Results: Test results from this visit will be discussed in further detail at your follow-up appointment, if applicable. Please Follow Up With: Francie Tejada MD - call When: to be seen in one week, please call for date and time, thank you
--- NOTE | 2018-10-15 07:40 | DCINST_ITS ---
Discharge Diet: No Restrictions - drink plenty of fluids Discharge Activity: Return to Normal Activity, May not drive while taking narcot ic pain medications. Lifting Restrictions: no lifting greater than 20 pounds for 2 weeks Call your doctor if your incision/area has: Continuous Slow Oozing, Foul Smelling Discharge Call your doctor if you observe: Fever of 101 or Higher Additional Dressing/Incision Instructions:: Leave dressings in place. May get wet in shower. Do not soak - no tub baths/swimming Additional Instructions: Recommended pain medication regimen: can take 600 mg ibuprofen then in three hours take 650 mg of acetaminophen, then in three hours take 600 mg of ibuprofen, then in three hours take 650 mg of acetaminophen, and so on for a few days take narcotic medication only for breakthrough pain and at night best to take narcotic medication after breast feeding Allergies/Adverse Reactions: Allergies No Known Allergies Allergy (Verified 10/10/18 21:18) Medications to take at Discharge Sucralfate [Carafate] 1 gm PO 4X/DAY 10/10/18 Hydrocodone Bitart/Apap 5-325 [[place] 5MG-325MG] 1 tab PO Q12H PRN PRN 5 Days #10 tab 10/15/18 The following prescriptions were given: Hydrocodone Bitart/Apap 5-325 [[place] 5MG-325MG] 1 tab PO Q12H PRN PRN 5 Days #10 tab PRN Reason: Pain Primary Care Physician: Darci Perez MD [Primary Care Provider] - Test Results: Test results from this visit will be discussed in further detail at your follow- up appointment, if applicable. Please Follow Up With: Francie Tejada MD - call When: to be seen in one week, please call for date and time, thank you
--- NOTE | 2018-10-15 07:40 | PCM.PN.SRG ---
Subjective: patient feeling well minimal abdominal pain - Physical Exam General: Alert, Oriented x3 Oral: Moist Mucosa Neck: Supple Lungs: Normal air movement Abdomen: Bowel Sounds Present, Soft Vital Signs Temp Pulse Resp BP Pulse Ox 98.1 F 62 18 128/82 H 97 10/15/18 07:35 10/15/18 07:35 10/15/18 07:35 10/15/18 07:35 10/15/18 07:35 Oxygen Flow Rate (L/min) 2 Oxygen Delivery Method Room Air Weight: 88.5 kg Body Mass Index (BMI) 35.6 Intake and Output for Last 24 Hours 10/13/18 10/14/18 10/15/18 23:59 23:59 23:59 Intake Total 3701 / 3701 4488 / 4488 660 / 660 Output Total 160 / 160 1550 / 1550 / Balance 3541 / 3541 2938 / 2938 640 / 640 Medical Necessity - Tobacco Use Smoking Status: Never smoker Assessment/Plan Impression: s/p laparoscopic cholecystectomy POD#2; s/p ERCP POD#1 Plan: I have discussed above with patient and her Can d/c to home later today GLORIA drain removed without difficulty encouraged ambulation and incentive spirometry
[2018-10-15 12:44] VITALS: BP 120/74; PULSE 65; RESP 18; TEMP 36.9; O2SAT 98
[2018-10-15 13:35] VITALS: BP 120/75; PULSE 65; RESP 18; TEMP 36.9; O2SAT 98
--- NOTE | 2018-10-31 11:05 | PCM.DC.BLA ---
Discharge Summary Date of Admission: 10/10/18 Date of Discharge: 10/15/18 Summary: Mary Ann Soares is a 23 y/o WF who presented with abdominal pain. She has known to have cholelithiasis as diagnosed at another facility. She also had presented with elevated LFTs, so an MRCP was obtained which revealed no lesions in the CBD. However, upon presentation at [facility] ED, she was noted to have elevated LFTs. Therefore she was admitted to the hospital, placed on IV antibiotics. She underwent laparoscopic cholecystectomy with cholangiograms on 10/13/18. She tolerated the surgery well. Intraoperative cholangiograms revealed CBD obstruction. She underwent ERCP on 10/14/18 and had removal of CBD stones. She tolerated procedure well. She was discharged to home on the next day. Tolerating regular diet, afebrile. To follow up as an outpatient. - Physical Exam Vital Signs Temp Pulse Resp BP Pulse Ox 98.5 F 65 18 120/75 98 10/15/18 13:35 10/15/18 13:35 10/15/18 13:35 10/15/18 13:35 10/15/18 13:35 Oxygen Flow Rate (L/min) 2 Oxygen Delivery Method Room Air Weight: 88.5 kg Body Mass Index (BMI) 35.6
--- NOTE | 2018-10-31 11:13 | DS.PCM_ITS ---
Discharge Summary Date of Admission: 10/10/18 Date of Discharge: 10/15/18 Summary: Mary Ann Soares is a 23 y/o WF who presented with abdominal pain. She has known to have cholelithiasis as diagnosed at another facility. She also had presented with elevated LFTs, so an MRCP was obtained which revealed no lesions in the CBD. However, upon presentation at [facility] ED, she was noted to have elevated LFTs. Therefore she was admitted to the hospital, placed on IV antibiotics. She underwent laparoscopic cholecystectomy with cholangiograms on 10/13/18. She tolerated the surgery well. Intraoperative cholangiograms revealed CBD obstruction. She underwent ERCP on 10/14/18 and had removal of CBD stones. She tolerated procedure well. She was discharged to home on the next day. Tolerating regular diet, afebrile. To follow up as an outpatient. - Physical Exam Vital Signs Temp Pulse Resp BP Pulse Ox 98.5 F 65 18 120/75 98 10/15/18 13:35 10/15/18 13:35 10/15/18 13:35 10/15/18 13:35 10/15/18 13:35 Oxygen Flow Rate (L/min) 2 Oxygen Delivery Method Room Air Weight: 88.5 kg Body Mass Index (BMI) 35.6
== END 2018-10-15 13:15 | disposition home or self-care (01) | DRG 419 ==
LOC: ED 21:50 → MS2 23:01
PROVIDERS: Anesthesiology; Surgery; Admitting Provider Surgery; Emergency Provider Emergency Medicine; Family Provider Family Medicine; PCP Family Medicine; Referring Provider Surgery; Visit Provider Surgery
PROC: 0FT44ZZ Resection of Gallbladder, Percutaneous Endoscopic Approach (ICD-10-PCS; CPT 47610; principal; 2018-10-13 13:40)
PROC: 0FC98ZZ Extirpation of Matter from Common Bile Duct, Via Natural or Artificial Opening Endoscopic (ICD-10-PCS; CPT 43260; principal; 2018-10-14 10:25)
DX: K80.65 Calculus of gallbladder and bile duct with chronic cholecystitis with obstruction (principal)
CPT/HCPCS: 36415; 74300; 74328; 76000; 80048; 80076; 81025; 83690; 85025; 88304; 93005; 99284; J7030; J7120; A4216; J2405

== ENCOUNTER 2019-02-24 21:39 | Emergency (ER) | payer OTHER, SELFPAY ==
[2018-10-13 13:21] VITALS: BMI 35.6
[2019-02-24 21:40] VITALS: BP 155/73; PULSE 90; RESP 16; TEMP 36.4; O2SAT 99; BMI 37.6
--- NOTE | 2019-02-24 22:28 | US_ITS ---
STUDY: FIRST TRIMESTER OBSTETRICAL ULTRASOUND REASON FOR EXAM: Female, 24 years old. Bleeding. LMP: 12/18/2018 TECHNIQUE: Transvaginal TECHNICAL QUALITY: Adequate. PRIOR ULTRASOUND: None. FINDINGS: There is visualization of a single gestational sac in a normal intrauterine position. The mean sac diameter (MSD) measures 5.1 cm, indicating an estimated gestational age (EGA) of 11 weeks, 1 days. The gestational sac shape is within normal limits. There is a visualized yolk sac. The yolk sac measures 3.5 mm. There is visualization of the placenta. Placenta is anterior. There is visualization of a live embryo. The crown-rump length (CRL) measures 5.0 cm, indicating an estimated gestational age (EGA) of 11 weeks, 6 days. There is demonstrated cardiac activity with a heart rate of 157 bpm. The estimated gestation age (EGA) by LMP is 9 weeks, 5 days. The estimated date of delivery (NOY) by LMP is 09/24/2019. The estimated gestation age (EGA) by US is 11 weeks, 4 days. The estimated date of delivery (NOY) by US is 09/11/2019. The uterus measures 10.9 x 9.2 x 7.2 cm. There is no demonstrated uterine fibroid. The cervix is closed. The right ovary is not visualized. The left ovary measures 2.5 x 2.5 x 2.2 cm. There is a 1.8 cm cyst. There is no visualized left adnexal mass or complex lesion. There is no fluid in the cul de sac. Incidentally noted low level echoes in the bladder consistent with debris which can be seen with cystitis. US/Transvaginal w/Preg US IMPRESSION: Single live intrauterine gestation with ultrasound EGA of 11 weeks 4 days. No definite complications seen. Electronically Signed: Jose Alejandro Madera MD at 23:22 EDT , Service support ,
--- NOTE | 2019-02-24 22:40 | ED.RN ---
ULTRASOUND CAME AND IMMEDIATELY TOOK PT FOR SCAN. WILL DRAW BLOOD UPON RETURN.
--- NOTE | 2019-02-24 23:25 | ED.DCSUM_ITS ---
- ER Visit Summary Date of Service: 02/24/19 Chief Complaint: Vaginal bleeding and History of Present Illness: The patient is a 24 F presenting with vaginal bleeding. Patient believes she is approximately 9 weeks . She has not had an ultrasound in this . She is G2, P1. She denies abdominal cramping. Denies other complaints. Physical Examination: Vitals are stable. Patient is afebrile. Alert no acute distress. HEENT exam is unremarkable. Neck is supple. Lungs are clear and equal bilaterally. Heart is regular rate and rhythm. Abdomen is soft nontender nondistended. No guarding or rebound Pelvic: Small amount of old blood which is cleared with cotton tip swab. Cervix is closed. Extremities are unremarkable. Skin is warm and dry. Remainder of exam is unremarkable. Emergency Department Course and Treatment: hCG quant [id number]. Pelvic ultrasound shows single live intrauterine gestation with ultrasound EGA of 11 weeks 4 days. No definite complications seen. Blood type is A-. She was ordered RhoGam IM. Patient is advised to follow-up with Dr. Cardenas. Advised to return to the ED for worsening complaints. Disposition: Discharge home Impression: Threatened This note was generated with [employer] dictation software. It may contain incorrect words, spelling, and punctuation that were not noted in review of the chart prior to signing ED Disposition - Plan for ED Patient: Instructions: POSSIBLE MISCARRIAGE (Threatened ) Referrals: Darci Perez MD [Primary Care Provider] - Darshana Cardenas MD [STAFF PHYSICIAN] -
--- NOTE | 2019-02-24 23:44 | ED.DEP ---
ED Disposition - Plan for ED Patient: Instructions: POSSIBLE MISCARRIAGE (Threatened ) Referrals: Darci Perez MD [Primary Care Provider] - Darshana Cardenas MD [STAFF PHYSICIAN] -
--- NOTE | 2019-02-25 01:51 | ED.RN ---
RHOGAM DELAYED DUE TO DEPARTMENT ACTIVITY
[2019-02-25 01:59] VITALS: BP 129/69; PULSE 78; RESP 16; O2SAT 98
== END 2019-02-25 02:00 | disposition home or self-care (01) ==
PROVIDERS: Emergency Provider Emergency Medicine; Family Provider Family Medicine; PCP Family Medicine
DX: O20.0 Threatened abortion (principal)
CPT/HCPCS: 76817; 84702; 86900; 86901; 90384; 96372; 99283; J2790

== ENCOUNTER → 2019-03-04 | Outpatient (CLI) | payer OTHER, SELFPAY ==
[2019-03-04 11:55] VITALS: BMI 37.6
[2019-03-04 13:41] LABS: Absolute Lymphocyte Count 2.04 X10^3/ul (0.83-4.51); Absolute Neutrophil Count 4.9 X10^3/uL (2.0-7.7); Eosinophil# 0.08 X10^3/uL; Eosinophils% 1.1 % (0-5); Hematocrit 37.8 % (37-47); Lymphocyte # 2.04 X10^3/ul (4.0); Mean Corp Hgb Conc 34.4 g/gl (32-36); Mean Corpuscular Hgb 29.2 pg (27.0-32.0); Mean Corpuscular Volume 84.9 fL (81-99); Mean Platelet Vol. 10.7 fl (6.2-12.0); Monocyte# 0.49 X10^3/uL; Monocyte% 6.5 % (0-10); Neutrophil # 4.93 X10^3/uL (2.7-7.7); Neutrophil % 65.1 % (47-70); Platelet Count 212 K/mm3 (150-450); RBC Distribution Width CV 14.1 % (11.6-14.6); RBC Distribution Width SD 43.8 fl (35.1-43.9); Red Blood Count 4.45 M/mm3 (4.2-5.4); White Blood Count 7.6 K/mm3 (4.4-11.0)
[2019-03-04 13:44] LABS: POSITIVE COUNT NO; POSITIVE DIFFERENTIAL NO; POSITIVE MORPHOLOGY NO
[2019-03-04 13:51] LABS: Glucose Challenge Gest 1H 50g 102 mg/dL (70-140)
[2019-03-04 14:47] LABS: HIV - WCH Non-Reactive (Nonreactive); Rubella IgG 112.9 IU/mL
[2019-03-04 20:14] LABS: Chlamydia Trachomatis by PCR Negative (Negative); Neisserai gonorrhoeae by PCR Negative (Negative); Probe Check PASS; Sample Adequacy Control PASS; Specimen Processing Control PASS
[2019-03-06 02:57] LABS: Rapid Plasmin Reagin (RPR) NONREACTIVE (NONREACTIVE)
[2019-03-08 13:52] LABS: HPV APTIMA, High Risk Negative (Negative); HPV Reflexed? YES, CHARGE PATIENT
== END | disposition home or self-care (01) ==
PROVIDERS: Family Provider Family Medicine; PCP Family Medicine; Referring Provider Nurse Practitioner Women's Health; Visit Provider Nurse Practitioner Women's Health
DX: Z34.90 Encounter for supervision of normal pregnancy, unspecified, unspecified trimester (principal)
CPT/HCPCS: 36415; 82950; 85025; 86592; 86703; 86762; 86850; 86870; 86900; 87086; 87088; 87491; 87591; 87624; 88175; G0145

== ENCOUNTER → 2019-04-01 17:19 | Outpatient (CLI) | payer OTHER, SELFPAY ==
[2019-04-01 10:33] VITALS: BMI 37.6
== END ==
PROVIDERS: Family Provider Family Medicine; PCP Family Medicine; Referring Provider Obstetrics & Gynecology; Visit Provider Obstetrics & Gynecology
DX: Z34.80 Encounter for supervision of other normal pregnancy, unspecified trimester (principal); Z3A.16 16 weeks gestation of pregnancy; R78.81 Bacteremia
CPT/HCPCS: 87086; 87088

== ENCOUNTER → 2019-04-22 | Outpatient (CLI) | payer SELFPAY ==
[2019-04-01 10:33] VITALS: BMI 37.6
--- NOTE | 2019-04-22 13:33 | US_ITS ---
STUDY: SECOND AND THIRD TRIMESTER OBSTETRICAL ULTRASOUND REASON FOR EXAM: Female, 24 years old. Routine survey. LMP: December 05, 2018. TECHNIQUE: Transabdominal TECHNICAL QUALITY: Adequate. PRIOR ULTRASOUND: Comparison is made with prior study dated February 24, 2019. FINDINGS: There is a single intrauterine fetus. The fetus is in a cephalic presentation. There is demonstrated cardiac activity with a heart rate of 153 bpm. There is a normal amniotic fluid volume. The largest amniotic fluid pocket measures 4.2 cm x 4 cm. The amniotic fluid index (HUMPHREY) is normal. The placenta is 3 There are Grade 0 placental changes. The cervix measures 5.0 cm in length. The bilateral adnexal regions are normal. BIOMETRY: BPD: 4.56 cm: 19 weeks, 6 days HC: 17.23 cm: 19 weeks, 6 days AC: 15.83 cm: 21 weeks, 0 days FL: 3.03 cm: 19 weeks, 3 days CI: 78% FL/BPD: 66% FL/HC: FL/AC: 19% HC/AC: 1.09 age by current US: 20 weeks, 1 days. NOY by current US: September 11, 2019. Estimated weight: 337 grams, +/- 49 grams, 72 %. age by prior US: 20 weeks, 1 days. NOY by prior US: September 11, 2019 Age by LMP: 20 weeks, 1 days. NOY by LMP: September 11, 2019.. ANATOMY: Gender: Male Cranium: Normal lateral ventricles. Normal choroid plexus. Normal cerebellum. Normal cisterna magna. Normal face, nose and lips. Chest: Normal 4-chamber heart. Abdomen/Pelvis: Normal diaphragm. Normal stomach. Normal abdominal wall. Normal cord insertion. Normal 3 vessel cord. Normal kidneys. Normal bladder. Spine: Limited visualization of the spine due to the position. Follow-up is recommended. Extremities: Normal bilateral upper extremities. Normal bilateral lower extremities. US/OB Anatomy Scan IMPRESSION: Single live intrauterine gestation with a mean gestational age of 20 weeks and 1 day. Limited assessment of the spine due to the position. Follow-up is recommended. Electronically Signed: Chago Mccormick, at 10:01 EDT , Service support ,
== END | disposition home or self-care (01) ==
PROVIDERS: Family Provider Family Medicine; PCP Family Medicine; Referring Provider Obstetrics & Gynecology; Visit Provider Obstetrics & Gynecology
DX: Z36.89 Encounter for other specified antenatal screening (principal)
CPT/HCPCS: 76805

== ENCOUNTER → 2019-05-20 | Outpatient (CLI) | payer SELFPAY ==
[2019-04-22 14:48] VITALS: BMI 37.6
--- NOTE | 2019-05-20 08:16 | US_ITS ---
STUDY: SECOND AND THIRD TRIMESTER OBSTETRICAL ULTRASOUND REASON FOR EXAM: Female, 24 years old follow-up for anatomical detail. LMP: December 05, 2018. TECHNIQUE: Transabdominal TECHNICAL QUALITY: Adequate. PRIOR ULTRASOUND: Comparison is made with prior study dated April 22, 2019. FINDINGS: There is a single intrauterine fetus. The fetus is in a breech presentation. There is demonstrated cardiac activity with a heart rate of 143 bpm. There is a normal amniotic fluid volume. The largest amniotic fluid pocket measures 5.8 cm x 3.6 cm. The amniotic fluid index (HUMPHREY) is within normal limits. The placenta is anterior in location and is not low lying. There are Grade 0 placental changes. The cervix measures 3.5 cm in length. The bilateral adnexal regions are normal. BIOMETRY: BPD: 5.98 cm: 24 weeks, 2 days HC: 22.57 cm: 24 weeks, 4 days AC: 20.91 cm: 25 weeks, 3 days FL: 4.11 cm: 23 weeks, 2 days CI: 77.87% FL/BPD: 68.7% FL/HC: FL/AC: 19.7% HC/AC: 1.08 age by current US: 24 weeks, 2 days. NOY by current US: September 07, 2019. Estimated weight: 715 grams, +/- 107 grams, 75 %. age by prior US: 24 weeks, 1 days. NOY by prior US: September 08, 2019. Age by LMP: 23 weeks, 5 days. NOY by LMP: September 11, 2019. ANATOMY: Cranium: Normal lateral ventricles. Normal choroid plexus. Normal cerebellum. Normal cisterna magna. Normal face, nose and lips. Chest: Normal 4-chamber heart. Abdomen/Pelvis: Normal diaphragm. Normal stomach. Normal abdominal wall. Normal cord insertion. Normal 3 vessel cord. Normal kidneys. Normal bladder. Spine: Normal cervical spine. Normal thoracic spine. Normal lumbar spine. Normal sacrum. Extremities: Normal bilateral upper extremities. Normal bilateral lower extremities. US/OB Limited (No Biometrics) IMPRESSION: Single live intrauterine gestation with a mean gestational age of 24 weeks and 1 day. The measurements obtained today are within normal range. The spine was visualized and is unremarkable. Electronically Signed: Chago Mccormick, at 8:30 EDT , Service support ,
== END | disposition home or self-care (01) ==
LOC: OPUS 08:15
PROVIDERS: Family Provider Family Medicine; PCP Family Medicine; Referring Provider Obstetrics & Gynecology; Visit Provider Obstetrics & Gynecology
DX: Z34.80 Encounter for supervision of other normal pregnancy, unspecified trimester (principal)
CPT/HCPCS: 76815

== ENCOUNTER → 2019-06-11 | Outpatient (CLI) | payer OTHER, SELFPAY ==
[2019-06-11 15:27] VITALS: BMI 37.6
[2019-06-11 17:17] LABS: Absolute Lymphocyte Count 1.68 X10^3/uL (0.83-4.51); Absolute Neutrophil Count 6.6 X10^3/uL (2.0-7.7); Basophil# 0.01 X10^3/uL; Basophil% 0.1 % (0-1); Eosinophil# 0.07 X10^3/uL; Eosinophils% 0.8 % (0-5); Hematocrit 35.8 % (37-47); Lymphocyte # 1.68 X10^3/ul (4.0); Mean Corp Hgb Conc 33.5 g/dL (32-36); Mean Corpuscular Hgb 30.4 pg (27.0-32.0); Mean Corpuscular Volume 90.6 fL (81-99); Mean Platelet Vol. 11.2 fl (6.2-12.0); Monocyte# 0.48 X10^3/uL; Monocyte% 5.4 % (0-10); NRBC Flagged by Analyzer 0 % (0-5); Neutrophil # 6.55 X10^3/uL (2.7-7.7); Neutrophil % 74.2 % (47-70); Platelet Count 208 K/mm3 (150-450); RBC Distribution Width CV 14.2 % (11.6-14.6); RBC Distribution Width SD 47.3 fl (35.1-43.9); Red Blood Count 3.95 M/mm3 (4.2-5.4); White Blood Count 8.8 K/mm3 (4.4-11.0)
[2019-06-11 17:54] LABS: Glucose Challenge Gest 1H 50g 122 mg/dL (70-140)
== END | disposition home or self-care (01) ==
LOC: LAB 15:45
PROVIDERS: Family Provider Family Medicine; PCP Family Medicine; Referring Provider Nurse Practitioner Women's Health; Visit Provider Nurse Practitioner Women's Health
DX: Z34.80 Encounter for supervision of other normal pregnancy, unspecified trimester (principal)
CPT/HCPCS: 36415; 82950; 85025

== ENCOUNTER → 2019-06-24 | Outpatient (CLI) | payer OTHER, SELFPAY ==
[2019-06-24 13:20] VITALS: BMI 37.8
[2019-06-24 14:00] LABS: ROM Internal Control Test YES-OK TO RESULT pt. (Internal QC); ROM Patient Test Negative (Negative)
== END | disposition home or self-care (01) ==
PROVIDERS: Family Provider Family Medicine; PCP Family Medicine; Referring Provider Nurse Practitioner Women's Health; Visit Provider Nurse Practitioner Women's Health
DX: O42.90 Premature rupture of membranes, unspecified as to length of time between rupture and onset of labor, unspecified weeks of gestation (principal); Z3A.00 Weeks of gestation of pregnancy not specified
CPT/HCPCS: 84112

== ENCOUNTER → 2019-07-10 | Outpatient (CLI) | payer OTHER, SELFPAY ==
[2019-07-10 10:49] VITALS: BMI 37.8
[2019-07-10 12:35] LABS: Hepatitis B Surface Antigen Non-Reactive (Nonreactive)
== END | disposition home or self-care (01) ==
LOC: LAB 11:01
PROVIDERS: Nurse Practitioner Women's Health; Family Provider Family Medicine; PCP Family Medicine; Referring Provider Obstetrics & Gynecology; Visit Provider Obstetrics & Gynecology
DX: Z34.80 Encounter for supervision of other normal pregnancy, unspecified trimester (principal)
CPT/HCPCS: 36415; 87340

== ENCOUNTER → 2019-08-14 16:06 | Outpatient (CLI) | payer OTHER, SELFPAY ==
[2019-08-14 15:13] VITALS: BMI 37.8
== END ==
PROVIDERS: Family Provider Family Medicine; PCP Family Medicine; Referring Provider Nurse Practitioner Women's Health; Visit Provider Nurse Practitioner Women's Health
DX: Z34.80 Encounter for supervision of other normal pregnancy, unspecified trimester (principal)
CPT/HCPCS: 87081

== ENCOUNTER 2019-08-15 21:45 | Outpatient (CLI) | payer OTHER, SELFPAY ==
[2019-08-14 15:13] VITALS: BMI 37.8
[2019-08-15 22:15] VITALS: BMI 38.5
[2019-08-15 23:35] LABS: Hematocrit 36.5 % (37-47); Hemoglobin 12.3 g/dL (12.0-15.0); Mean Corp Hgb Conc 33.7 g/dL (32-36); Mean Corpuscular Hgb 29.9 pg (27.0-32.0); Mean Corpuscular Volume 88.8 fL (81-99); Mean Platelet Vol. 12.1 fl (6.2-12.0); Platelet Count 196 K/mm3 (150-450); RBC Distribution Width CV 14.4 % (11.6-14.6); RBC Distribution Width SD 46.1 fl (35.1-43.9); Red Blood Count 4.11 M/mm3 (4.2-5.4); White Blood Count 9.7 K/mm3 (4.4-11.0)
[2019-08-15 23:45] LABS: Prothrombin Time (Protime)PT. 13.4 SECONDS (11.7-14.9)
[2019-08-15 23:46] LABS: Partial Thromboplast Time 27.4 Seconds (24.1-36.2)
[2019-08-15 23:51] LABS: AST(SGOT) 13 U/L (15-37); Alanine Aminotransfer ALT/SGPT 19 U/L (13-56); Creatinine, Serum 0.58 mg/dL (0.55-1.02); EST Glomerular Filtration Rate 138 mL/min (>60); Est Glom Filt Rate - Afr Amer 166 mL/min (>60); Estimated Creatinine Clearance 120.33 ml/min; Uric Acid 3.2 mg/dL (2.6-6.0)
[2019-08-16 00:12] LABS: Protein, Urine (Random) 6.8 mg/dL (<11.9); Protein:Creat Ratio 372 mg/g CRE (0-200)
[2019-08-16] MEDS: Betamethasone/Betamethasone 30 MG/5 ML Vial 12 MG IM (00:58)
[2019-08-16] MEDS: Lactated Ringers 500 ML IV.SOLN. 1000 ML IV (02:52)
--- NOTE | 2019-08-16 04:15 | OB.TRI.HP_ITS ---
- Problem List (1) Preeclampsia Status: Acute (2) Bacteriuria during Status: Acute Comment: repeat culture negative (3) Rh negative status during Status: Acute Qualifiers: Comment: rhogam at 28 weeks and PRN (4) Family history of pyloric stenosis Status: Acute Comment: first child diagnosed after and had surgery (5) Status: Acute Qualifiers: Comment: Declines carrier and genetic screen; needs repeat urine culture. (6) Supervision of other normal Status: Acute Comment: PRR NOY 09/11/19 PC: Noah. Spouse:Edward History of Present Illness Date of Service: 08/16/19 Was patient seen by the physician?: Yes Reason For Visit: RULE OUT LABOR Final NOY: 09/11/19 Gestational age: 36 Weeks and 2 Days History of Present Illness: 24-year-old 1 P0 at 36 weeks 2 days presents with intermittent headache. Patient's headache is better with Tylenol but blood pressure is found to be mildly elevated 130s to 140s over 80s to 90s. Labs show proteinuria over 300 mg but other labs are within normal limits. Patient was given 1 dose of Celestone for prematurity now and preeclampsia precautions were reviewed. Allergies No Known Allergies Allergy (Verified 08/15/19 22:17) - Pertinent Past Medical History Surgical History: Past Surgical History (Last Reviewed 08/14/19 @ 14:54 by Nica Manzo) Hx laparoscopic cholecystectomy Laboratory Studies: Laboratory Tests 08/15/19 08/15/19 08/15/19 Range/Units 23:05 23:05 23:05 WBC (4.4-11.0) K/mm3 RBC (4.2-5.4) M/mm3 Hgb (12.0-15.0) g/dL Hct (37-47) % MCV (81-99) fL MCH (27.0-32.0) pg MCHC (32-36) g/dL RDW Std Deviation (35.1-43.9) fl RDW Coeff of Yon (11.6-14.6) % Plt Count (150-450) K/mm3 MPV (6.2-12.0) fl PT 13.4 (11.7-14.9) SECONDS INR 1.0 APTT 27.4 (24.1-36.2) Seconds Creatinine 0.58 (0.55-1.02) mg/dL Estim Creat Clear Calc 120.33 ml/min Est GFR (MDRD) Af Amer 166 (>60) mL/min Est GFR (MDRD) Non-Af 138 (>60) mL/min Uric Acid 3.2 (2.6-6.0) mg/dL AST 13 L (15-37) U/L ALT 19 (13-56) U/L U Random Total Protein 6.8 (<11.9) mg/dL Urine Creatinine 18.30 (NO RANGE EST.) mg/dL Protein/Creatinin Ratio 372 H (0-200) mg/g CRE 08/15/19 Range/Units 23:05 WBC 9.7 (4.4-11.0) K/mm3 RBC 4.11 L (4.2-5.4) M/mm3 Hgb 12.3 (12.0-15.0) g/dL Hct 36.5 L (37-47) % MCV 88.8 (81-99) fL MCH 29.9 (27.0-32.0) pg MCHC 33.7 (32-36) g/dL RDW Std Deviation 46.1 H (35.1-43.9) fl RDW Coeff of Yon 14.4 (11.6-14.6) % Plt Count 196 (150-450) K/mm3 MPV 12.1 H (6.2-12.0) fl PT (11.7-14.9) SECONDS INR APTT (24.1-36.2) Seconds Creatinine (0.55-1.02) mg/dL Estim Creat Clear Calc ml/min Est GFR (MDRD) Af Amer (>60) mL/min Est GFR (MDRD) Non-Af (>60) mL/min Uric Acid (2.6-6.0) mg/dL AST (15-37) U/L ALT (13-56) U/L U Random Total Protein (<11.9) mg/dL Urine Creatinine (NO RANGE EST.) mg/dL Protein/Creatinin Ratio (0-200) mg/g CRE Review of Systems Constitutional: Denies: Fever, Malaise Eyes: Reports: Vision Change - Did have some blurriness previously now resolved HEENT: Reports: Head Aches. Denies: Visual Changes Cardiovascular: Denies: Chest Pain, Palpitations Respiratory: Denies: Cough, Shortness of Breath, Wheezing Gastrointestinal: Denies: Abdominal Pain, Diarrhea, Nausea, Vomiting Genitourinary: Denies: Dysuria, Hematuria Musculoskeletal: Denies: Joint Pain, Muscle pain Skin: Denies: Lesions, Rash Neurological: Denies: Blurred vision, Focal weakness, Headaches Psychiatric: Denies: Anxiety, Depression Endocrine: Denies: Heat/ Cold Intolerance Hematologic/ Lymphatic: Denies: Easy Bruising, Easy Bleeding Physical Exam General: Alert, Cooperative, No apparent distress HEENT: Atraumatic, Normocephalic. Negative for: Thyromegaly, Lymphadenopathy Cardiovascular: Regular rate Lungs: Normal air movement Abdomen: Soft, Non Tender, Gravid Neurological: Deep Tendon Reflexes 2+/4 and Symmetrical, Neuro grossly intact. Negative for: Clonus STRATEGIC PLANNING CONSULTANT: Normal external genitalia. Negative for: Vulvar lesions Estimated gestational size: Appropriate for gestational size Presentation: Cephalic NST - FHR Rate Baby A Baseline: 130 Variability:: Moderate Accelerations:: 15 x 15 Decelerations:: None NST Reactive:: Yes FHR Category:: Category I Uterine Activity:: Irritability Impression/Plan 24-year-old G1, P0 at 36 weeks 2 days presents with new onset preeclampsia Recommend home blood pressure monitoring and follow-up in the office on Saturday for blood pressure check. Plan repeat Celestone dose tonight. Follow home blood pressures and if continue to be elevated recommend induction of labor Saturday 37 weeks. Multi Select Codes - Urinary/Genital Urinary/Genital CPT Codes: 22037-59 non-stress test Interp
== END 2019-08-16 05:45 | disposition home or self-care (01) ==
LOC: WPOUT 22:07 → WP 22:08
PROVIDERS: Family Provider Family Medicine; PCP Family Medicine; Referring Provider Obstetrics & Gynecology; Visit Provider Obstetrics & Gynecology
DX: O14.93 Unspecified pre-eclampsia, third trimester (principal); Z3A.36 36 weeks gestation of pregnancy
CPT/HCPCS: 96374; 36415; 59050; 82565; 82570; 84156; 84450; 84460; 84550; 85027; 85610; 85730; 96372; 99218; J7120; G0378; J0702

== ENCOUNTER 2019-08-16 16:40 | Outpatient (CLI) | payer OTHER, SELFPAY ==
[2019-08-15 22:15] VITALS: BMI 38.5
[2019-08-16 17:06] VITALS: BMI 38.7
[2019-08-16 17:22] LABS: Hematocrit 37.3 % (37-47); Hemoglobin 12.5 g/dL (12.0-15.0); Mean Corp Hgb Conc 33.5 g/dL (32-36); Mean Corpuscular Hgb 30.2 pg (27.0-32.0); Mean Corpuscular Volume 90.1 fL (81-99); Mean Platelet Vol. 11.7 fl (6.2-12.0); Platelet Count 208 K/mm3 (150-450); RBC Distribution Width CV 14.6 % (11.6-14.6); RBC Distribution Width SD 47.6 fl (35.1-43.9); Red Blood Count 4.14 M/mm3 (4.2-5.4); White Blood Count 11.4 K/mm3 (4.4-11.0)
[2019-08-16 17:38] LABS: Protein, Urine (Random) 9.8 mg/dL (<11.9); Protein:Creat Ratio 144 mg/g CRE (0-200)
[2019-08-16 17:40] LABS: AST(SGOT) 15 U/L (15-37); Alanine Aminotransfer ALT/SGPT 20 U/L (13-56); Creatinine, Serum 0.62 mg/dL (0.55-1.02); EST Glomerular Filtration Rate 127 mL/min (>60); Est Glom Filt Rate - Afr Amer 154 mL/min (>60); Estimated Creatinine Clearance 112.57 ml/min; Prothrombin Time (Protime)PT. 13.3 SECONDS (11.7-14.9); Uric Acid 3.7 mg/dL (2.6-6.0)
[2019-08-16 17:41] LABS: Partial Thromboplast Time 24.7 Seconds (24.1-36.2)
[2019-08-16] MEDS: Betamethasone/Betamethasone 30 MG/5 ML Vial 12 MG IM (18:07)
--- NOTE | 2019-08-17 21:06 | OB.TRI.PN ---
Progress Notes Date of Service: 08/17/19 Progress Note: Patient presents for triage evaluation secondary to 6/ 8 BPP and gestational hypertension FHT: 130-140 Moderate variability reactive no decelerations category I tracing [place]: no Contractions Assessment and plan: Abnormal testing reactive NST, reassuring maternal and status patient discharged to home to follow-up for induction of labor Saturday. See problem list details for additional plan information. Laboratory Studies: Laboratory Tests 08/16/19 08/16/19 08/16/19 Range/Units 17:10 17:00 17:00 WBC (4.4-11.0) K/mm3 RBC (4.2-5.4) M/mm3 Hgb (12.0-15.0) g/dL Hct (37-47) % MCV (81-99) fL MCH (27.0-32.0) pg MCHC (32-36) g/dL RDW Std Deviation (35.1-43.9) fl RDW Coeff of Yon (11.6-14.6) % Plt Count (150-450) K/mm3 MPV (6.2-12.0) fl PT 13.3 (11.7-14.9) SECONDS INR 1.0 APTT 24.7 (24.1-36.2) Seconds Creatinine 0.62 (0.55-1.02) mg/dL Estim Creat Clear Calc 112.57 ml/min Est GFR (MDRD) Af Amer 154 (>60) mL/min Est GFR (MDRD) Non-Af 127 (>60) mL/min Uric Acid 3.7 (2.6-6.0) mg/dL AST 15 (15-37) U/L ALT 20 (13-56) U/L U Random Total Protein 9.8 (<11.9) mg/dL Urine Creatinine 67.90 (NO RANGE EST.) mg/dL Protein/Creatinin Ratio 144 (0-200) mg/g CRE 08/16/19 Range/Units 17:00 WBC 11.4 H (4.4-11.0) K/mm3 RBC 4.14 L (4.2-5.4) M/mm3 Hgb 12.5 (12.0-15.0) g/dL Hct 37.3 (37-47) % MCV 90.1 (81-99) fL MCH 30.2 (27.0-32.0) pg MCHC 33.5 (32-36) g/dL RDW Std Deviation 47.6 H (35.1-43.9) fl RDW Coeff of Yon 14.6 (11.6-14.6) % Plt Count 208 (150-450) K/mm3 MPV 11.7 (6.2-12.0) fl PT (11.7-14.9) SECONDS INR APTT (24.1-36.2) Seconds Creatinine (0.55-1.02) mg/dL Estim Creat Clear Calc ml/min Est GFR (MDRD) Af Amer (>60) mL/min Est GFR (MDRD) Non-Af (>60) mL/min Uric Acid (2.6-6.0) mg/dL AST (15-37) U/L ALT (13-56) U/L U Random Total Protein (<11.9) mg/dL Urine Creatinine (NO RANGE EST.) mg/dL Protein/Creatinin Ratio (0-200) mg/g CRE Multi Select Codes - Urinary/Genital Urinary/Genital CPT Codes: 25711-39 non-stress test Interp
--- NOTE | 2019-08-21 02:20 | OB.TRI.PN_ITS ---
Progress Notes Date of Service: 08/16/19 Progress Note: Patient presents for triage evaluation secondary to elevated blood pressures not feeling well. Possible preeclampsia FHT: 130 Moderate variability reactive no decelerations category I tracing [place]: No regular contractions Assessment and plan: Preeclampsia recommend steroids and expectant management. Reviewed preeclampsia precautions plan induction of labor at 37 weeks reactive NST, reassuring maternal and status patient discharged to home to follow-up in office. See problem list details for additional plan information. Laboratory Studies: Laboratory Tests 08/16/19 08/16/19 08/16/19 Range/Units 17:10 17:00 17:00 WBC (4.4-11.0) K/mm3 RBC (4.2-5.4) M/mm3 Hgb (12.0-15.0) g/dL Hct (37-47) % MCV (81-99) fL MCH (27.0-32.0) pg MCHC (32-36) g/dL RDW Std Deviation (35.1-43.9) fl RDW Coeff of Yon (11.6-14.6) % Plt Count (150-450) K/mm3 MPV (6.2-12.0) fl PT 13.3 (11.7-14.9) SECONDS INR 1.0 APTT 24.7 (24.1-36.2) Seconds Creatinine 0.62 (0.55-1.02) mg/dL Estim Creat Clear Calc 112.57 ml/min Est GFR (MDRD) Af Amer 154 (>60) mL/min Est GFR (MDRD) Non-Af 127 (>60) mL/min Uric Acid 3.7 (2.6-6.0) mg/dL AST 15 (15-37) U/L ALT 20 (13-56) U/L U Random Total Protein 9.8 (<11.9) mg/dL Urine Creatinine 67.90 (NO RANGE EST.) mg/dL Protein/Creatinin Ratio 144 (0-200) mg/g CRE 08/16/19 Range/Units 17:00 WBC 11.4 H (4.4-11.0) K/mm3 RBC 4.14 L (4.2-5.4) M/mm3 Hgb 12.5 (12.0-15.0) g/dL Hct 37.3 (37-47) % MCV 90.1 (81-99) fL MCH 30.2 (27.0-32.0) pg MCHC 33.5 (32-36) g/dL RDW Std Deviation 47.6 H (35.1-43.9) fl RDW Coeff of Yon 14.6 (11.6-14.6) % Plt Count 208 (150-450) K/mm3 MPV 11.7 (6.2-12.0) fl PT (11.7-14.9) SECONDS INR APTT (24.1-36.2) Seconds Creatinine (0.55-1.02) mg/dL Estim Creat Clear Calc ml/min Est GFR (MDRD) Af Amer (>60) mL/min Est GFR (MDRD) Non-Af (>60) mL/min Uric Acid (2.6-6.0) mg/dL AST (15-37) U/L ALT (13-56) U/L U Random Total Protein (<11.9) mg/dL Urine Creatinine (NO RANGE EST.) mg/dL Protein/Creatinin Ratio (0-200) mg/g CRE - Problem List (1) Preeclampsia Status: Acute Multi Select Codes - Urinary/Genital Urinary/Genital CPT Codes: 69671-27 non-stress test Interp
== END 2019-08-17 19:04 | disposition home or self-care (01) ==
LOC: WPOUT 16:57 → OBT 16:59
PROVIDERS: Family Provider Family Medicine; PCP Family Medicine; Referring Provider Obstetrics & Gynecology; Visit Provider Obstetrics & Gynecology
DX: O13.9 Gestational [pregnancy-induced] hypertension without significant proteinuria, unspecified trimester (principal); Z3A.00 Weeks of gestation of pregnancy not specified
CPT/HCPCS: 36415; 59025; 59050; 82565; 82570; 84156; 84450; 84460; 84550; 85027; 85610; 85730; 96372; 99218; G0378; J0702

== ENCOUNTER → 2019-08-17 16:20 | Outpatient (CLI) | payer OTHER, SELFPAY ==
[2019-08-17 10:48] VITALS: BMI 38.7
--- NOTE | 2019-08-17 16:21 | US_ITS ---
STUDY: SECOND AND THIRD TRIMESTER OBSTETRICAL ULTRASOUND REASON FOR EXAM: Female, 24 years old HUMPHREY GROWTH LMP: Unknown. TECHNIQUE: Transabdominal TECHNICAL QUALITY: Adequate. PRIOR ULTRASOUND: 05/20/2019 FINDINGS: There is a single intrauterine fetus. The fetus is in a cephalic presentation. There is demonstrated cardiac activity with a heart rate of 147 bpm. There is a normal amniotic fluid volume. The largest amniotic fluid pocket measures 8.8 cm. The amniotic fluid index (HUMPHREY) is 16.72 cm. The placenta is anterior in location and is not low lying. There are Grade 1 placental changes. The cervix measures 3.9 cm in length. The cervix is closed. The bilateral adnexal regions are normal. BIOMETRY: BPD: 8.69 cm: 35 weeks, 1 days HC: 32.35 cm: 36 weeks, 5 days AC: 35.09 cm: 39 weeks, 0 days FL: 7.02 cm: 30 weeks, 6 days age by current US: 36 weeks, 5 days. NOY by current US: 09/09/2019. Estimated weight: 3244 grams, +/- 474 grams, 82 %. US/OB Limited With Biometrics IMPRESSION: Single live intrauterine gestation at approximately 36 weeks and 5 days based on the current ultrasound. Electronically Signed: Ferdinand Jaimes, at 14:02 EST Tel , Service support ,
--- NOTE | 2019-08-17 16:25 | US_ITS ---
STUDY: OBSTETRICAL ULTRASOUND - BIOPHYSICAL PROFILE REASON FOR EXAM: Female, 24 years old WELL BEING LMP: 12/05/2018. PRIOR ULTRASOUND: None. TECHNIQUE: Transabdominal TECHNICAL QUALITY: 05/20/2019. FINDINGS: There is a single intrauterine fetus. The fetus is in a cephalic presentation. There is demonstrated cardiac activity with a heart rate of 158 bpm. There is a normal amniotic fluid volume. The largest amniotic fluid pocket measures 6.1 x 4.7 cm. The amniotic fluid index (HUMPHREY) is 16.7 cm. The placenta is anterior in location and is not low lying. There are Grade 1 placental changes. Age by LMP: 36 weeks, 3 days. NOY by LMP: 09/11/2019. BIOPHYSICAL PROFILE: Breathing Movements (FBM): 0 Gross Body Movements (GBM): 2 Tone (FT): 2 Amniotic Fluid Volume (AFV): 2 TOTAL SCORE: 6 / 8 US/Biophysical Prof W/O Non Stres IMPRESSION: biophysical profile of 6/8 as described above. Clinical correlation recommended. Electronically Signed: Mary Anne Asif MD at 3:35 EST , Service support ,
== END ==
PROVIDERS: Family Provider Family Medicine; PCP Family Medicine; Referring Provider Obstetrics & Gynecology; Visit Provider Obstetrics & Gynecology
DX: Z34.80 Encounter for supervision of other normal pregnancy, unspecified trimester (principal)
CPT/HCPCS: 76816; 76819

== ENCOUNTER 2019-08-17 17:30 | Outpatient (CLI) | payer OTHER, SELFPAY ==
[2019-08-17 10:48] VITALS: BMI 38.7
[2019-08-17 11:28] LABS: Protein, Urine (Random) 10.4 mg/dL (<11.9); Protein:Creat Ratio 198 mg/g CRE (0-200)
[2019-08-17 17:45] VITALS: BMI 38.2
--- NOTE | 2019-08-21 02:27 | OB.TRI.PN_ITS ---
Progress Notes Date of Service: 08/17/19 Progress Note: FHT: 150 Moderate variability reactive no decelerations category I tracing [place]: No regular contractions Laboratory Studies: Laboratory Tests 08/17/19 Range/Units 11:06 U Random Total Protein 10.4 (<11.9) mg/dL Urine Creatinine 52.40 (NO RANGE EST.) mg/dL Protein/Creatinin Ratio 198 (0-200) mg/g CRE Multi Select Codes - Urinary/Genital Urinary/Genital CPT Codes: 45448-90 non-stress test Interp
== END 2019-08-17 19:04 | disposition home or self-care (01) ==
LOC: LABSPEC 17:33 → WPOUT 17:34 → WP 17:35
PROVIDERS: Family Provider Family Medicine; PCP Family Medicine; Referring Provider Obstetrics & Gynecology; Visit Provider Obstetrics & Gynecology
DX: Z34.90 Encounter for supervision of normal pregnancy, unspecified, unspecified trimester (principal); Z3A.00 Weeks of gestation of pregnancy not specified
CPT/HCPCS: 59025; 59050; 82570; 84156; 99218; G0378

== ENCOUNTER 2019-08-20 10:20 | Outpatient (CLI) | payer OTHER, SELFPAY ==
[2019-08-20 10:42] VITALS: BMI 38.0
--- NOTE | 2019-08-21 02:23 | OB.TRI.PN ---
Progress Notes Date of Service: 08/20/19 Progress Note: FHT: 140-150 Moderate variability reactive no decelerations category I tracing [place]: No regular contractions - Problem List (1) Preeclampsia Status: Acute Multi Select Codes - Urinary/Genital Urinary/Genital CPT Codes: 99230-67 non-stress test Interp
== END 2019-08-20 11:35 | disposition home or self-care (01) ==
LOC: WPOUT 10:25 → WP 10:25
PROVIDERS: Family Provider Family Medicine; PCP Family Medicine; Referring Provider Obstetrics & Gynecology; Visit Provider Obstetrics & Gynecology
DX: O14.90 Unspecified pre-eclampsia, unspecified trimester (principal); Z3A.00 Weeks of gestation of pregnancy not specified
CPT/HCPCS: 59025

== ENCOUNTER 2019-08-21 07:09 | Inpatient (IN) | payer SELFPAY, OTHER ==
[2019-07-10 10:49] VITALS: BMI 37.8
[2019-08-20 10:42] VITALS: BMI 38.0
[2019-08-21 07:22] VITALS: BMI 38.0
[2019-08-21] MEDS: Lactated Ringers 1,000 ML 50 ML IV (07:45)
[2019-08-21 07:57] LABS: Absolute Lymphocyte Count 2.17 X10^3/uL (0.83-4.51); Absolute Neutrophil Count 7.5 X10^3/uL (2.0-7.7); Basophil# 0.01 X10^3/uL; Basophil% 0.1 % (0-1); Hematocrit 35.8 % (37-47); Lymphocyte # 2.17 X10^3/ul (4.0); Lymphocyte % 20.8 % (19-41); Mean Corp Hgb Conc 33.5 g/dL (32-36); Mean Corpuscular Hgb 29.9 pg (27.0-32.0); Mean Corpuscular Volume 89.3 fL (81-99); Mean Platelet Vol. 11.7 fl (6.2-12.0); Monocyte# 0.66 X10^3/uL; Monocyte% 6.3 % (0-10); NRBC Flagged by Analyzer 0 % (0-5); Neutrophil # 7.45 X10^3/uL (2.7-7.7); Neutrophil % 71.2 % (47-70); Platelet Count 197 K/mm3 (150-450); RBC Distribution Width CV 14.8 % (11.6-14.6); RBC Distribution Width SD 47.8 fl (35.1-43.9); Red Blood Count 4.01 M/mm3 (4.2-5.4); White Blood Count 10.5 K/mm3 (4.4-11.0)
[2019-08-21] MEDS: 0.9% Normal Saline Single 100 ML IV.SOLN. IY (08:00)
[2019-08-21] MEDS: Oxytocin 30 units/NS 500 ml 30 UNITS/500 ML IV.SOLN IV (08:05)
--- NOTE | 2019-08-21 10:58 | PCM.HPOB.BLA ---
- Problem List (1) Bacteriuria during Status: Acute Comment: repeat culture negative (2) Family history of pyloric stenosis Status: Acute Comment: first child diagnosed after and had surgery (3) Preeclampsia Status: Acute (4) Status: Acute Qualifiers: Comment: Declines carrier and genetic screen; needs repeat urine culture. (5) Rh negative status during Status: Acute Qualifiers: Comment: rhogam at 28 weeks and PRN (6) Supervision of other normal Status: Acute Comment: PRR NOY 09/11/19 PC: Noah. Spouse:Randal History and Physical Date of Admission: 08/21/19 Intake Vital Signs 08/17/19 Height 5 ft 2 in 08/17/19 Weight: 211 lb 08/17/19 BMI 38.5 08/17/19 BP 154/92 H Intake Visit Reasons: OB f/u, seem in L&D this Chief Complaint: est ob, L&D follow up Pre E Talent Acquisition Project Manager Required: No Is patient in pain?: No Allergies No Known Allergies Allergy (Verified 08/17/19 10:47) Medications Sucralfate [Carafate] 1 gm PO 4X/DAY 10/10/18 [History Confirmed 08/17/19] prenat.vits,pako,mrn-ngbs-bplsn 1 tab PO DAILY 03/04/19 [History Confirmed 08/17/19] Last Menstral Period: 12/18/18 Zika: Zika virus screening: Negative : No PFSH PFSH Surgical History Hx laparoscopic cholecystectomy (Acute) Family History Grandfather Diabetes Heart disease Cancer Grandmother Thyroid disorder Cataract Social History (Updated 08/17/19 @ 13:32 by Darshana Cardenas MD) number of children: 1 current occupation: Homemaker Smoking Status: Never smoker alcohol intake: never substance use type: does not use seatbelt use: sometimes do you feel safe at home: Yes additional social history: Randal Prefab/Construction Pregancy History 2 Elective abortions Hx Para 1 Spontaneous abortions Hx # Term Pregnancies 1 Ectopic pregnancies Hx # Pregnancies Multiple births # of living children 1 Past Pregnancies Del. Date Name GA/Weeks Outcome Route Bth Weight Gen Labor Lgth Anesthesia Del Locatn Provider FOB 06/11/18 Noha 39 live - full term 7 lbs 1 oz Male [address] Bret Tee HPI OB f/u, seem in L&D this weekend: Details: KEIKO FOWLER is a 24 year old who presents for routine OB visit. diagnosed with GHTN/preeclampsia this week, received BMZ x two sat/sun. initial proteinuria and then repeats WNL. bps at home 140s/80-90s. intermittent rsuso. OB Visit NOY Calculator Estimated Delivery Date Method Current WG Current Estimate 09/11/19 Ultrasound #1 36w 3d Other Estimates 09/24/19 LMP (Uncertain) 34w 4d Expected Delivery Route/Plan Labor Preferences- labor support person: Randal pain management options preferred: natural cut cord/dad catch: no : no PP control planned: [] discussed possible routes of delivery and associated risks: [] special requests: [] Specific Issue/Plans flu vaccine: decline tdap vaccine: decline rhogam: given LARC form signed: yes Problem list reviewed and updated with the most current plan of care details and appropriate orders placed. Relevant counseling for the gestational age provided. Continue routine care and follow up unless otherwise noted in visit notes/problem list details Initial Weight: 208 lb Date EGA Weight BP Urine Prot Glucose FHR FuHt Pres Mov CTX Dilation Effaced St Visit Note 04/01/19 16w 5d 205 lb 2 oz (-2 lb 14 oz) 128/70 160 no vb lof good fmno reguar ctx 04/22/19 19w 5d 204 lb 6 oz (-3 lb 10 oz) 124/72 Negative Negative 151 NO VB, LOF. Had anatomy US today. No movement yet 05/20/19 23w 5d 208 lb (+0 oz) 132/88 Negative Negative 150 no vb bleedin 06/11/19 26w 6d 208 lb (+0 oz) 130/80 Negative Negative 157 27 Good FM. No VB, LOF 06/24/19 28w 5d 206 lb 8 oz (-1 lb 8 oz) 136/82 Negative Negative 152 Work in for ? lof:states has happened couple of times yesterday and today/yellow color. No VB. Good FM 07/10/19 31w 0d 208 lb 8 oz (+8 oz) 124/80 Negative Negative 142 31 NO VB, LOF. Good FM. Hep B drawn today 07/29/19 33w 5d 207 lb 6 oz (-10 oz) 135/83 Negative Negative 137 34 Good FM. No Vb, LOF or CTX. 08/14/19 36w 0d 210 lb (+2 lb) 138/82 Negative Negative 142 37 Cephalic 0 Good FM. No VB, LOF. GBS 08/17/19 36w 3d 211 lb (+3 lb) 154/92 Notes Visit Date: 08/17/19 ??No visit notes to display Visit Date: 08/14/19 ??No visit notes to display Visit Date: 07/29/19 ??Good FM. No Vb, LOF or CTX. ??MELINDA Daigle on 07/29/19 Visit Date: 07/10/19 ??NO VB, LOF. Good FM. Hep B drawn today ??MELINDA Daigle on 07/10/19 Visit Date: 06/24/19 ??Work in for ? lof:states has happened couple of times yesterday and today/yellow color. No VB. Good FM ??MELINDA Daigle on 06/24/19 Visit Date: 06/11/19 ??Good FM. No VB, LOF ??MELINDA Daigle on 06/11/19 Visit Date: 05/20/19 ??no vb bleedin ??Darshana Cardenas MD on 05/20/19 Visit Date: 04/22/19 ??NO VB, LOF. Had anatomy US today. No movement yet ??MELINDA Daigle on 04/22/19 Visit Date: 04/01/19 ??no vb lof good fmno reguar ctx ??Darshana Cardenas MD on 04/01/19 ACOG First Trimester First Trimester: Desire for , Alcohol, Tobacco Cessation, Illicit/Recreational Drug/Substance Use, Intimate Partner Violence, Barriers to care, Unstable Housing, Communication Barriers, Environmental/Work Hazards, Anticipated Course of Care, Toxoplasmosis Precations, Use of Any medications, Sexual activity, Exercise, Dental Care, Sauna/Hot tub use, Seat Belt use, Childbirth classes/Hospital facilities, , Travel, Indications for US and Screening for Aneuploidy Second Trimester Second Trimester: Signs and Symptoms of Labor, Selecting a care provider, Reproductive Life Planning, Care Planning, Tobacco Cessation, Depression/Anxiety and Intimate Partner Violence Third Trimester Third Trimester: Pain Management Plans, Labor support person(s), Immediate Larc, Movement Monitoring and Infant Feeding Yes ; discussed Trial of Labor after Counseling or discussed Circumcision preference Diagnostics Diagnostics Diagnostics Glucose 1 Hr 50 gm 122 mg/dL (70-140) 06/11/19 Hgb 12.5 g/dL (12.0-15.0) 08/16/19 Hct 37.3 % (37-47) 08/16/19 Details: HIV: Urine Culture: Sequential Screen: NIPT Screen: ROS Const Reports system reviewed and no additional complaints, except as docu Card Reports system reviewed and no additional complaints, except as docu Resp Reports system reviewed and no additional complaints, except as docu GI Reports system reviewed and no additional complaints, except as docu, Reports nausea Reports system reviewed and no additional complaints, except as docu Musc Reports system reviewed and no additional complaints, except as docu Exam Const General: cooperative, healthy appearing, comfortable, anxious HENMT Head: normal to inspection Nose: external nose normal Face and sinus: normal facial exam Neck Neck: normal visual inspection, full ROM, no lymphadenopathy Thyroid: thyroid normal Chest Chest palpation & inspection: normal inspection of the chest Resp Effort & Inspection: normal respiratory effort GI Inspection: normal to inspection Palpation: soft, other (gravid uterus) Other: vertex and appropriate size for gestational age Other: Cervical Exam: Extrem General: pedal edema Assessment & Plan Problems 1. Preeclampsia O14.90 2. Bacteriuria during O99.89; R82.71 3. Rh negative status during in second trimester O26.899; Z67.91 4. Family history of pyloric stenosis Z83.79 5. 36 weeks gestation of Z34.90 6. Supervision of other normal Z34.80 Patient presents IOL, plan management for , pitocin/AROM after mcguire bulb Pain management: epi if desired GBS negative Management of any complications: preeclampsia/GHTN I have reviewed the [facility] and made any clinically relevant updates. Orders Orders: POC Urinalysis 2 Dip (Clinic) Today Protein+Creatinine Ratio,Urine Today O16.3 Biophysical Profile Today Z34.80 OB Limited With Biometrics Today Z34.80 Coding Level of Care Code OB Routine Diagnoses Preeclampsia O14.90 Bacteriuria during O99.89; R82.71 Rh negative status during in second trimester O26.899; Z67.91 Family history of pyloric stenosis Z83.79 36 weeks gestation of Z34.90 Supervision of other normal Z34.80
--- NOTE | 2019-08-21 13:56 | PCM.PN.BLA ---
Progress Note FHT: 140 Moderate variability reactive no decelerations category I tracing [place]: Every 2 minutes contractions epi if desires. no severely elevated bps. reassuring FHT pit at 6. arom clear fluid
[2019-08-21] MEDS: Nalbuphine 10 MG/ML Ampul IV ×2 (14:06→16:56)
[2019-08-21] MEDS: Lactated Ringers 1,000 ML 200 ML IV (17:30)
[2019-08-21] MEDS: Oxytocin 30 units/NS 500 ml 30 UNITS/500 ML IV.SOLN 334 UNITS IV (18:17)
--- NOTE | 2019-08-21 18:27 | PCM.OPRPT ---
Problem List (1) Bacteriuria during Status: Acute Comment: repeat culture negative (2) Family history of pyloric stenosis Status: Acute Comment: first child diagnosed after and had surgery (3) Preeclampsia Status: Acute (4) Status: Acute Qualifiers: Comment: Declines carrier and genetic screen; needs repeat urine culture. (5) Rh negative status during Status: Acute Qualifiers: Comment: rhogam at 28 weeks and PRN (6) Supervision of other normal Status: Acute Comment: PRR NOY 09/11/19 PC: Noah. Spouse:Edward Vaginal Delivery Maternal Presentation: Medically Indicated Induction iol ghtn 37 weeks Method of Induction: Pitocin, Nails Bulb Medical Reason for Induction: Gestational Hypertension, Preeclampsia, eclampsia Amniotic Membrane Rupture Type: Artificial Amniotic Fluid Description: Clear Final NOY: 09/11/19 Gestational age: 37 Weeks and 0 Days Date of Procedure: 08/21/19 Pre-Operative Diagnosis: iol ghtn/preeclampsia Post-Operative Diagnosis: same Surgery/ Procedure Performed: Spontaneous Vaginal Delivery Type of Anesthesia: None Description of Procedure: Patient began pushing and delivered the head in the KETAN presentation. The head was delivered atraumatically and a loose nuchal cord ?1 was identified and easily reduced over the infant's head. The anterior and posterior shoulders delivered without complication followed by the rest of the and the was placed on the maternal abdomen. Delayed cord clamping was employed for approximately 60 seconds. Cord was clamped and cut and gentle traction was applied to the cord and the placenta delivered spontaneously immediately following it was noted to be intact with three-vessel cord. The perineum and vagina were inspected and noted to have no laceration. EBL was 200. Patient and tolerated delivery well. Presentation: KETAN Placental Delivery Description: Spontaneous Placenta Disposition: [facility] Cord Vessel Description: 3 Vessels Cord Entanglement: None Estimated Blood Loss: 200 A gender: Male Episiotomy Description: None Laceration: None Medications given after delivery: IV Pitocin Complications: None Multi Select Codes - Urinary/Genital Urinary/Genital CPT Codes: 08691 Vaginal Delivery [facility]
[2019-08-21] MEDS: Naproxen 250 MG Tablet 500 MG PO (19:39)
[2019-08-21 20:20] VITALS: BP 129/69; PULSE 77; RESP 18; TEMP 36.5
[2019-08-21] MEDS: 0.9% Saline Lock 10 ML Syringe IV (20:43)
[2019-08-21 23:51] VITALS: BP 119/60; PULSE 82; RESP 18; TEMP 36.8
[2019-08-22] MEDS: oxyCODONE 5 MG Tablet PO (00:03)
[2019-08-22 04:35] VITALS: BP 124/74; PULSE 78; RESP 14; TEMP 37.1
--- NOTE | 2019-08-22 05:57 | PCM.PN.OB ---
Subjective: doing well no complaints pain controlled no CP SOB N V ambulating well tolerating po lochia moderate, going well - Physical Exam Vitals/I&O's: Vital Signs Temp Pulse Resp BP 98.7 F 78 14 124/74 H 08/22/19 04:35 08/22/19 04:35 08/22/19 04:35 08/22/19 04:35 Oxygen Delivery Method Room Air Weight: 208 lb 5.389 oz Body Mass Index (BMI) 38.0 Intake and Output for Last 24 Hours 08/20/19 08/21/19 08/22/19 23:59 23:59 23:59 Intake Total 2549.91 / 2549.91 Output Total 1400 / 1400 Balance 1149.91 / 1149.91 General: Alert, Oriented x3 Laboratory Results 08/21/19 07:45: WBC 10.5, RBC 4.01 L, Hgb 12.0, Hct 35.8 L, MCV 89.3, MCH 29.9, MCHC 33.5, RDW Std Deviation 47.8 H, RDW Coeff of Yon 14.8 H, Plt Count 197, MPV 11.7, Immature Gran % (Auto) 0.600, Neut % (Auto) 71.2 H, Lymph % (Auto) 20.8, [place] % (Auto) 6.3, Eos % (Auto) 1.0, Baso % (Auto) 0.1, Absolute Neuts (auto) 7.5, Absolute Lymphs (auto) 2.17, Nucleated RBC % 0 08/21/19 07:45: Blood Type A NEGATIVE, Antibody Screen NEGATIVE Current Medications Acetaminophen (Tylenol) 1,000 mg PO Q8H PRN PRN PRN Reason: Pain Score 1-3/10 Bisacodyl (Dulcolax) 10 mg RECTAL UD PRN PRN Reason: If no BM Dibucaine (Dibucaine) 1 applic TOPICAL TID PRN PRN; Protocol PRN Reason: Discomfort Hydrocortisone (Hytone) 1 applic TOPICAL TID PRN PRN; Protocol PRN Reason: Discomfort Naproxen (Naprosyn) 500 mg PO Q8H PRN PRN PRN Reason: Pain Score 1-3/10 Last Admin: 08/21/19 19:39 Dose: 500 mg Documented by: Ondansetron HCl (Zofran) 4 mg IV Q4H PRN PRN PRN Reason: Nausea Oxycodone HCl (Oxyir) 5 - 10 mg PO Q4H PRN PRN PRN Reason: Pain Score 4-10/10 Last Admin: 08/22/19 00:03 Dose: 5 mg Documented by: Senna/Docusate Sodium (Senokot-S, Svetlana-Colace) 1 - 2 tablet PO DAILY PRN PRN PRN Reason: Constipation Simethicone (Mylicon) 80 mg PO PCHS PRN PRN Reason: Indigestion/Stomach pain Sodium Chloride () 5 - 15 ml IV UD PRN PRN Reason: SALINE FLUSH Last Admin: 08/21/19 20:43 Dose: 10 ml Documented by: Medical Necessity - Tobacco Use Smoking Status: Former smoker Assessment/Plan All Active Problems (Last Reviewed 08/17/19 @ 10:47 by Bouchra Jenkins) Preeclampsia (Acute) Bacteriuria during (Acute) Rh negative status during (Acute) Family history of pyloric stenosis (Acute) (Acute) Supervision of other normal (Acute) post uncomplicated ghtn dc home tomorrow breast feeding
[2019-08-22 08:20] VITALS: BP 125/66; PULSE 62; RESP 14; TEMP 36.6
[2019-08-22] MEDS: Naproxen 250 MG Tablet 500 MG PO ×2 (08:34→16:26)
[2019-08-22] MEDS: Senna/Docusate Sodium 1 Tablet PO (10:26)
[2019-08-22] MEDS: Acetaminophen 500 MG Tablet 1000 MG PO (10:26)
[2019-08-22 11:52] VITALS: BP 132/60; PULSE 64; RESP 18; TEMP 36.4
[2019-08-22 15:44] VITALS: BP 127/78; PULSE 90; RESP 18; TEMP 36.8
[2019-08-22 19:53] VITALS: BP 145/81; PULSE 81; RESP 18; TEMP 36.9
[2019-08-22 21:19] VITALS: BP 136/57
[2019-08-23 03:13] VITALS: BP 141/83; PULSE 78; RESP 16; TEMP 36.6
[2019-08-23] MEDS: Naproxen 250 MG Tablet 500 MG PO ×2 (03:14→10:21)
--- NOTE | 2019-08-23 05:41 | PCM.PN.OB ---
Subjective: doing well no complaints pain controlled no CP SOB N V ambulating well tolerating po lochia moderate, going well - Physical Exam Vitals/I&O's: Vital Signs Temp Pulse Resp BP 97.8 F 78 16 141/83 H 08/23/19 03:13 08/23/19 03:13 08/23/19 03:13 08/23/19 03:13 Oxygen Delivery Method Room Air Weight: 208 lb 5.389 oz Body Mass Index (BMI) 38.0 Intake and Output for Last 24 Hours 08/21/19 08/22/19 08/23/19 23:59 23:59 23:59 Intake Total 2549.91 / 2549.91 Output Total 1400 / 1400 Balance 1149.91 / 1149.91 General: Alert, Oriented x3 Current Medications Acetaminophen (Tylenol) 1,000 mg PO Q8H PRN PRN PRN Reason: Pain Score 1-3/10 Last Admin: 08/22/19 10:26 Dose: 1,000 mg Documented by: Bisacodyl (Dulcolax) 10 mg RECTAL UD PRN PRN Reason: If no BM Dibucaine (Dibucaine) 1 applic TOPICAL TID PRN PRN; Protocol PRN Reason: Discomfort Hydrocortisone (Hytone) 1 applic TOPICAL TID PRN PRN; Protocol PRN Reason: Discomfort Naproxen (Naprosyn) 500 mg PO Q8H PRN PRN PRN Reason: Pain Score 1-3/10 Last Admin: 08/23/19 03:14 Dose: 500 mg Documented by: Ondansetron HCl (Zofran) 4 mg IV Q4H PRN PRN PRN Reason: Nausea Oxycodone HCl (Oxyir) 5 - 10 mg PO Q4H PRN PRN PRN Reason: Pain Score 4-10/10 Last Admin: 08/22/19 00:03 Dose: 5 mg Documented by: Senna/Docusate Sodium (Senokot-S, Svetlana-Colace) 1 - 2 tablet PO DAILY PRN PRN PRN Reason: Constipation Last Admin: 08/22/19 10:26 Dose: 2 tablet Documented by: Simethicone (Mylicon) 80 mg PO PCHS PRN PRN Reason: Indigestion/Stomach pain Sodium Chloride () 5 - 15 ml IV UD PRN PRN Reason: SALINE FLUSH Last Admin: 08/21/19 20:43 Dose: 10 ml Documented by: Medical Necessity - Tobacco Use Smoking Status: Former smoker Assessment/Plan All Active Problems (Last Reviewed 08/17/19 @ 10:47 by Bouchra Jenkins) Preeclampsia (Acute) Bacteriuria during (Acute) Rh negative status during (Acute) Family history of pyloric stenosis (Acute) (Acute) Supervision of other normal (Acute) s/p PPD # 2 1. routine post delivery care 2. breast feeding- support given 3. rh negative rhogam prn 4. rubella immune
--- NOTE | 2019-08-23 05:42 | DCINST_ITS ---
Discharge Diet: No Restrictions Discharge Activity: Return to Normal Activity, May not drive while taking narcotic pain medications., May Shower May resume sexual activity in: 4-6 weeks Call your doctor if your incision/area has: Continuous Slow Oozing, Sudden Increased Bleeding, Increased Pain/ Swelling, Increased Redness, Foul Smelling Discharge Additional Instructions: If you experience any of the following, contact your healthcare provider. * Bleeding that soaks a pad every hour for 2 hours * Fever 100.4 or higher * Unrelieved incision or abdominal pain * Swelling, redness, discharge or bleeding from your incision or episiotomy site * Your incision begins to separate * Problems urinating (including inability to urinate or burning while urinating). * Visual changes * Severe headache * Flu-like symptoms * Pain or redness in one of both of your breasts * Pain, warmth, tenderness or swelling in your legs, especially the calf area * Frequent nausea and vomiting * Symptoms of depression or anxiety If you experience any of the following, call 911 or go to the nearest Emergency Room. * Chest pain * Problems breathing * Seizure activity * Partial or complete paralysis of a body part, slurred speech, weakness or drooping of the face, or a sudden inability to walk or hold your balance Allergies/Adverse Reactions: Allergies No Known Allergies Allergy (Verified 08/20/19 11:03) Medications to take at Discharge prenat.vits,pako,[id number] 1 tab PO DAILY 03/04/19 Please Follow Up With: Darshana Cardenas MD - [phone] When: Call to make an appointment with your doctor in 6 weeks. If you had elevated Blood pressure or 4th degree laceration you will need to be seen in 2 weeks. Primary Care Physician: Darci Perez MD [Primary Care Provider] - Test Results: Test results from this visit will be discussed in further detail at your follow- up appointment, if applicable.
--- NOTE | 2019-08-23 05:42 | PCM.DCVAG ---
Discharge Diet: No Restrictions Discharge Activity: Return to Normal Activity, May not drive while taking narcotic pain medications., May Shower May resume sexual activity in: 4-6 weeks Call your doctor if your incision/area has: Continuous Slow Oozing, Sudden Increased Bleeding, Increased Pain/ Swelling, Increased Redness, Foul Smelling Discharge Additional Instructions: If you experience any of the following, contact your healthcare provider. Bleeding that soaks a pad every hour for 2 hours Fever 100.4 or higher Unrelieved incision or abdominal pain Swelling, redness, discharge or bleeding from your incision or episiotomy site Your incision begins to separate Problems urinating (including inability to urinate or burning while urinating). Visual changes Severe headache Flu-like symptoms Pain or redness in one of both of your breasts Pain, warmth, tenderness or swelling in your legs, especially the calf area Frequent nausea and vomiting Symptoms of depression or anxiety If you experience any of the following, call 911 or go to the nearest Emergency Room. Chest pain Problems breathing Seizure activity Partial or complete paralysis of a body part, slurred speech, weakness or drooping of the face, or a sudden inability to walk or hold your balance Allergies/Adverse Reactions: Allergies No Known Allergies Allergy (Verified 08/20/19 11:03) Medications to take at Discharge prenat.vits,pako,[id number] 1 tab PO DAILY 03/04/19 Please Follow Up With: Darshana Cardenas MD - [phone] When: Call to make an appointment with your doctor in 6 weeks. If you had elevated Blood pressure or 4th degree laceration you will need to be seen in 2 weeks. Primary Care Physician: Darci Perez MD [Primary Care Provider] - Test Results: Test results from this visit will be discussed in further detail at your follow-up appointment, if applicable.
[2019-08-23 08:00] VITALS: BP 151/62; PULSE 88; RESP 17; TEMP 37.1
[2019-08-23 10:00] VITALS: BP 151/62; PULSE 86; RESP 15; TEMP 37.1
== END 2019-08-23 11:30 | disposition home or self-care (01) | DRG 807 ==
PROVIDERS: Admitting Provider Obstetrics & Gynecology; Family Provider Family Medicine; PCP Family Medicine; Visit Provider Obstetrics & Gynecology
DX: O60.14X0 Preterm labor third trimester with preterm delivery third trimester, not applicable or unspecified (principal); Z37.0 Single live birth; O14.94 Unspecified pre-eclampsia, complicating childbirth; O69.81X0 Labor and delivery complicated by cord around neck, without compression, not applicable or unspecified; Z3A.37 37 weeks gestation of pregnancy
CPT/HCPCS: 59025; 59050; 85025; 86850; 86900; 86901; 99218; J7120; A4216; G0378

== ENCOUNTER → 2020-10-03 14:35 | Outpatient (CLI) | payer SELFPAY ==
[2019-09-28 15:45] VITALS: BMI 38.0
--- NOTE | 2020-10-03 14:54 | US_ITS ---
STUDY: FIRST TRIMESTER OBSTETRICAL ULTRASOUND REASON FOR EXAM: Female, 25 years old SPOTTING AFTER A FALL LMP: 07/26/2020 TECHNIQUE: Transvaginal TECHNICAL QUALITY: Adequate. PRIOR ULTRASOUND: None. FINDINGS: No intra or extrauterine gestational sac The uterus measures 10.1 x 6.2 x 5.2 cm. Endometrium measures 1.3 cm There is no demonstrated uterine fibroid. The cervix is closed. The right ovary measures 2.2 x 2.5 x 2.4 cm. There is no right ovarian cyst. There is no visualized right adnexal mass or complex lesion. The left ovary measures 2.4 x 1.6 x 1.4 cm. There is no left ovarian cyst. There is no visualized left adnexal mass or complex lesion. There is no fluid in the cul de sac. US/Transvaginal w/Preg US IMPRESSION: Sonographically normal pelvic sonogram. No sonographic evidence of intra or extrauterine gestation Electronically Signed: Chano Chavez MD at 17:04 EST , Service support ,
[2020-10-03 16:50] LABS: hCG Titer Quant., Serum 5246 mIU/mL (1-3)
== END ==
PROVIDERS: PCP Family Medicine; Referring Provider Obstetrics & Gynecology; Visit Provider Obstetrics & Gynecology
DX: O20.0 Threatened abortion (principal)
CPT/HCPCS: 36415; 76817; 84702; 86850; 86900; 86901

== ENCOUNTER 2021-03-04 08:37 | Emergency (ER) | payer OTHER, SELFPAY ==
[2020-10-03 15:29] VITALS: BMI 37.8
[2021-03-04 08:38] VITALS: BP 126/75; PULSE 86; RESP 16; TEMP 37; O2SAT 99; BMI 36.2
--- NOTE | 2021-03-04 08:55 | EDS_ITS ---
HPI HPI - Female History of Present Illness Chief Complaint: Vag Bld, Preg Detail of Chief Complaint: Patient presents with vaginal bleeding that started this morning. Informant: patient Narrative Narrative: Patient presents with vaginal bleeding that started this morning. Patient's last menstrual period was December 02. Patient was known to be . She had small amount of cramping yesterday. When she arrived to the emergency department she started having increased vaginal bleeding and went into the bathroom and passed the fetus. Patient is . Patient has required RhoGam in the past. Patient otherwise has no medical history. She denies any abdominal pain currently. PFSH PFSH Home Medications prenat.vits,pako,[id number] 1 tab PO DAILY 03/04/19 [History Last Taken 08/19/19 10:00] Allergy/AdvReac Type Severity Reaction Status Date / Time No Known Allergies Allergy Verified 03/04/21 08:38 Family History Grandfather Diabetes Heart disease Cancer Grandmother Thyroid disorder Cataract Surgical History Hx laparoscopic cholecystectomy Social History (Updated 10/03/20 @ 15:[address] Ella Ruiz MD) number of children: 1 current occupation: Homemaker Smoking Status: Never smoker alcohol intake: never substance use type: does not use seatbelt use: sometimes do you feel safe at home: Yes additional social history: [employer] ROS ROS ED Constitutional Constitutional ED: Reports systems reviewed and no addt'l complaints, except as documented; Denies body ache(s), change in weight or chills Eyes Eyes: Denies acute decrease in peripheral vision, change in vision, double vision or loss of vision ENT ENT ED: Reports none; Denies ear pain, lip swelling, loss taste/smell, neck pain, otalgia or sore throat Cardiovascular Cardiovascular: Reports none; Denies abdominal pain, chest pain with activity, leg edema, lightheadedness, palpitations, rapid heart rate or syncope Respiratory/Chest Respiratory/Chest: Reports none; Denies change in mental status, dry cough, dy spnea, hemoptysis, shortness of breath at rest or shortness of breath with exertion Gastrointestinal Gastrointestinal: Reports none; Denies abdominal pain, change in stool character, diarrhea, hematemesis, hematochezia, melena, rectal bleeding or vomiting Genitourinary Genitourinary ED: Reports none and other Details: Vaginal bleeding ; Denies abdominal discomfort, anuria, dysuria, genital pain or polyuria Musculoskeletal Musculoskeletal: Reports none; Denies arthralgias, back pain, difficulty walking, extremity pain, muscle weakness or myalgias Integumentary Reports none; Denies abscess or rash Neurologic Neurologic: Reports none; Denies abnormal gait, confusion, focal weakness, frequent falls, headache(s), loss of vision, numbness, paresthesias, radicular pain, vertigo or weakness Psychiatric Psychiatric: Reports systems reviewed and no addt'l complaints, except as documented and none; Denies behavioral changes, confusion, difficulty concentrating, hallucinations, suicidal ideation, tactile hallucinations or visual hallucinations Endocrine Endocrinology: Denies none, cold intolerance, excessive sweating, fatigue or heat intolerance Hematologic/Lymphatic Hematologic/Lymphatic: Reports none; Denies anemia, easy bleeding or easy bruising Allergic/Immunologic Allergic/Immunologic ED: Denies as per HPI, none, lip swelling, mouth swelling, throat swelling, tongue swelling or hives EXAM Physical Exam Const Vital Signs: 03/04/21 08:38 03/04/21 10:03 03/04/21 10:47 Temperature 98.6 F Temperature Source Temporal Pulse Rate 86 72 Pulse Rate [Lying] 80 Pulse Rate [Sitting] 80 Pulse Rate [Standing] 91 Respiratory Rate 16 16 Blood Pressure 126/75 H 129/76 H Blood Pressure [Lying] 139/81 H Blood Pressure [Sitting] 139/82 H Blood Pressure [Standing] 128/82 H Blood Pressure Mean 92 93 Blood Pressure Mean [Lying] 100 Blood Pressure Mean [Sitting] 101 Blood Pressure Mean [Standing] 97 Pulse Ox 99 Oxygen Delivery Method Room Air Positive well nourished and well developed General Appearance ED: well developed and NAD HEENT Reports TM's clear and moist mucous membranes normocephalic and atraumatic; Negative for trauma or tenderness Tympanic Membrane ED: Yes TM's clear Eyes PERRL and EOMs intact bilaterally General Eye ED: Negative for pale conjunctiva or scleral icterus Neck no lymphadenopathy, supple and no JVD General: Negative for tenderness Chest Wall inspection of chest normal and palpation of chest normal Chest: Negative for tenderness Resp normal respiratory effort and clear to auscultation bilaterally Effort and Inspection: Negative for respiratory distress or pain with movement Auscultation: Negative for rhonchi, wheezes or diminished lung sounds Cardio regular rate, regular rhythm, S1 normal heart sound, S2 normal heart sound and no murmurs Peripheral Pulses: pulses 2+ throughout GI normal to inspection, nondistended, normoactive bowel sounds, soft to palpation, non-tender, non-distended and no masses Back/Spine no CVA tenderness and no thoracic nor lumbar tenderness Extremity normal to inspection General Extremety ED: Negative for edema General Extremity: Negative for edema Neuro oriented x3, CN's II-XII intact bilaterally, no sensory deficits noted and gait normal Sensorium / Orientation: awake, alert, oriented to person, oriented to place and oriented to time Motor Exam: strength 5/5 throughout and strength abnormal Psych mental status grossly normal Skin no rashes or lesions noted and no wounds MDM MDM MDM Narrative Medical decision making narrative: Case was discussed with [employer] on-call covering for Dr. Cardenas spoke with Dr. Ruiz who asked that I give patient RhoGam. Patient will receive RhoGam in the department. On pelvic exam she had blood and clot in the vaginal vault and there was tissue coming from the cervical os. Patient had passed more tissue while in the department. Patient will take the fetus home with her. Patient advised to return if persistent heavy bleeding, lightheadedness, worsening pain, fever, or conditions worsen anyway. Lab Data Attestation: I reviewed the patient's lab results. Labs: Laboratory Results - last 24 hr 03/04/21 03/04/21 03/04/21 09:10 09:10 09:10 WBC 6.5 RBC 4.79 Hgb 14.0 Hct 41.0 MCV 85.6 MCH 29.2 MCHC 34.1 RDW Std Deviation 42.7 RDW Coeff of Yon 13.6 Plt Count 207 MPV 10.9 Immature Gran % (Auto) 0.200 Neut % (Auto) 66.2 Lymph % (Auto) 25.3 [place] % (Auto) 6.9 Eos % (Auto) 1.1 Baso % (Auto) 0.3 Absolute Neuts (auto) 4.3 Absolute Lymphs (auto) 1.65 Nucleated RBC % 0 HCG, Quant 1495 H Blood Type Cancelled Antibody Screen 07/10/21 09:10 WBC RBC Hgb Hct MCV MCH MCHC RDW Std Deviation RDW Coeff of Yon Plt Count MPV Immature Gran % (Auto) Neut % (Auto) Lymph % (Auto) [place] % (Auto) Eos % (Auto) Baso % (Auto) Absolute Neuts (auto) Absolute Lymphs (auto) Nucleated RBC % HCG, Quant Blood Type A NEGATIVE Antibody Screen NEGATIVE Discharge Plan Triage Chief Complaint: Vag Bld, Preg ED Provider: Diana Gonzalez Dx/Rx/DC Orders Clinical Impression: Spontaneous Instructions: ED MISCARRIAGE Completed Prescriptions: No Action prenat.vits,pako,[id number] Tablet 1 tab PO DAILY RF: 0 Primary Care Provider: Evan Lopez Referrals: Evan Lopez DO [Primary Care Provider] - Darshana Cardenas MD [STAFF PHYSICIAN] - 3-5 Days
[2021-03-04 09:30] LABS: Absolute Lymphocyte Count 1.65 X10^3/uL (0.83-4.51); Absolute Neutrophil Count 4.3 X10^3/uL (2.0-7.7); Basophil# 0.02 X10^3/uL; Basophil% 0.3 % (0-1); Eosinophil# 0.07 X10^3/uL; Eosinophils% 1.1 % (0-5); Lymphocyte # 1.65 X10^3/ul (0.83-4.51); Lymphocyte % 25.3 % (19-41); Mean Corp Hgb Conc 34.1 g/dL (32-36); Mean Corpuscular Hgb 29.2 pg (27.0-32.0); Mean Corpuscular Volume 85.6 fL (81-99); Mean Platelet Vol. 10.9 fl (6.2-12.0); Monocyte# 0.45 X10^3/uL; Monocyte% 6.9 % (0-10); NRBC Flagged by Analyzer 0 % (0-5); Neutrophil # 4.33 X10^3/uL (2.7-7.7); Neutrophil % 66.2 % (47-70); Platelet Count 207 K/mm3 (150-450); RBC Distribution Width CV 13.6 % (11.6-14.6); RBC Distribution Width SD 42.7 fl (35.1-43.9); Red Blood Count 4.79 M/mm3 (4.2-5.4); White Blood Count 6.5 K/mm3 (4.4-11.0)
[2021-03-04] MEDS: 0.9% Normal Saline 1,000 ML 1000 ML IV (09:31)
[2021-03-04 09:48] LABS: hCG Titer Quant., Serum 1495 mIU/mL (1-3)
[2021-03-04 10:03] VITALS: BP 129/76; PULSE 72; RESP 16
[2021-03-04 10:47] VITALS: BP 128/82; BP 139/81; BP 139/82; PULSE 80; PULSE 91
[2021-03-04 11:56] VITALS: PULSE 90; RESP 15
== END 2021-03-04 12:40 | disposition home or self-care (01) ==
LOC: ED 09:01
PROVIDERS: Emergency Provider Emergency Medicine; PCP Family Medicine
DX: O03.9 Complete or unspecified spontaneous abortion without complication (principal)
CPT/HCPCS: 84702; 85025; 86850; 86900; 86901; 90384; 96360; 96361; 96372; 99284; J7030; A4216; J2790

== ENCOUNTER → 2021-03-09 14:18 | Outpatient (CLI) | payer SELFPAY ==
[2021-03-04 08:38] VITALS: BMI 36.2
--- NOTE | 2021-03-09 14:25 | US_ITS ---
STUDY: ULTRASOUND TRANSVAGINAL CLINICAL: Female, 26 years old. SAB -- R/O retained products TECHNIQUE: Transvaginal COMPARISON: None. FINDINGS: The uterus measures 9.9 x 7.2 x 5.2 cm. Endometrial stripe measures 0.9 cm in thickness. There is no discrete uterine fibroid. A nabothian cyst is seen in the cervix. The right ovary measures 2.9 x 2.8 x 1.2 cm and the left ovary measures 2.4 x 2.6 x 1.2 cm. No focal ovarian lesion is identified on either side. Blood flow to the ovaries was documented. There is no adnexal mass. No free fluid is seen in the pelvis. US/Transvaginal Non- IMPRESSION: Essentially unremarkable pelvic ultrasound. Correlation with serial beta hCG levels recommended if clinical suspicion for retained products of conception is high. Electronically Signed: Rolan Hu MD at 0:56 EDT Tel , Service support ,
[2021-03-09 17:51] LABS: hCG Titer Quant., Serum 35 mIU/mL (1-3)
[2021-03-13 16:08] LABS: Dilute Prothrombin Time (dPT) 25.7 sec (0.0-55.0); Dilute Russell Viper Venom 29.5 sec (0.0-47.0); Thrombin Time 16.8 sec (0.0-23.0); dPT Confirm Ratio 1.04 Ratio (0.00-1.40)
[2021-03-14 11:48] LABS: Anti-Cardiolipin Ab, IgA, Qn < 9 APL U/mL (0-11); Anti-Cardiolipin Ab, IgG, Qn < 9 GPL U/mL (0-14); Anti-Cardiolipin Ab, IgM, Qn 13 MPL U/mL (0-12); Beta-2-Glycoprotein I IgA <9 (0-25); Beta-2-Glycoprotein I IgG <9 (0-20); Beta-2-Glycoprotein I IgM <9 (0-32); Interpretation Comment: (.)
== END ==
PROVIDERS: PCP Family Medicine; Referring Provider Obstetrics & Gynecology; Visit Provider Obstetrics & Gynecology
DX: O03.9 Complete or unspecified spontaneous abortion without complication (principal); N96 Recurrent pregnancy loss
CPT/HCPCS: 36415; 76830; 84702; 86146; 86147

== ENCOUNTER → 2021-03-14 09:28 | Outpatient (CLI) | payer OTHER, SELFPAY ==
[2021-03-09 15:11] VITALS: BMI 36.2
[2021-03-14 09:43] LABS: Absolute Lymphocyte Count 2.23 X10^3/uL (0.83-4.51); Absolute Neutrophil Count 3.6 X10^3/uL (2.0-7.7); Basophil# 0.03 X10^3/uL; Basophil% 0.5 % (0-1); Eosinophil# 0.14 X10^3/uL; Eosinophils% 2.2 % (0-5); Hematocrit 38.7 % (37-47); Hemoglobin 12.7 g/dL (12.0-15.0); Lymphocyte # 2.23 X10^3/ul (0.83-4.51); Lymphocyte % 34.5 % (19-41); Mean Corp Hgb Conc 32.8 g/dL (32-36); Mean Corpuscular Hgb 29.1 pg (27.0-32.0); Mean Corpuscular Volume 88.6 fL (81-99); Mean Platelet Vol. 10.6 fl (6.2-12.0); Monocyte# 0.47 X10^3/uL; Monocyte% 7.3 % (0-10); NRBC Flagged by Analyzer 0 % (0-5); Neutrophil # 3.58 X10^3/uL (2.7-7.7); Neutrophil % 55.2 % (47-70); Platelet Count 247 K/mm3 (150-450); RBC Distribution Width CV 13.6 % (11.6-14.6); RBC Distribution Width SD 44.2 fl (35.1-43.9); Red Blood Count 4.37 M/mm3 (4.2-5.4); White Blood Count 6.5 K/mm3 (4.4-11.0)
[2021-03-14 10:01] LABS: hCG Titer Quant., Serum 7 mIU/mL (1-3)
== END ==
PROVIDERS: PCP Family Medicine; Referring Provider Obstetrics & Gynecology; Visit Provider Obstetrics & Gynecology
DX: O03.9 Complete or unspecified spontaneous abortion without complication (principal)
CPT/HCPCS: 36415; 84702; 85025

== ENCOUNTER → 2021-06-23 10:10 | Outpatient (CLI) | payer SELFPAY ==
[2021-06-25 13:06] LABS: Dilute Russell Viper Venom 34.7 sec (0.0-47.0); PTT-LA 31.3 sec (0.0-51.9); Thrombin Time 17.2 sec (0.0-23.0)
[2021-06-25 14:20] LABS: Anti-Cardiolipin Ab, IgA, Qn < 9 APL U/mL (0-11); Anti-Cardiolipin Ab, IgG, Qn < 9 GPL U/mL (0-14); Anti-Cardiolipin Ab, IgM, Qn 16 MPL U/mL (0-12); Beta-2-Glycoprotein I IgA <9 (0-25); Beta-2-Glycoprotein I IgG <9 (0-20); Beta-2-Glycoprotein I IgM 9 (0-32); Dilute Prothrombin Time (dPT) 38.4 sec (0.0-47.6); Interpretation Comment: (.); dPT Confirm Ratio 1.04 Ratio (0.00-1.34)
== END ==
PROVIDERS: PCP Family Medicine; Referring Provider Obstetrics & Gynecology; Visit Provider Obstetrics & Gynecology
DX: N96 Recurrent pregnancy loss (principal)
CPT/HCPCS: 36415; 86146; 86147

== ENCOUNTER 2021-10-11 10:05 | Outpatient (CLI) | payer SELFPAY ==
[2021-10-11 11:03] LABS: Absolute Lymphocyte Count 1.71 X10^3/uL (0.83-4.51); Absolute Neutrophil Count 4.6 X10^3/uL (2.0-7.7); Basophil# 0.02 X10^3/uL; Basophil% 0.3 % (0-1); Eosinophil# 0.11 X10^3/uL; Eosinophils% 1.6 % (0-5); Hematocrit 37.8 % (37-47); Hemoglobin 12.8 g/dL (12.0-15.0); Lymphocyte # 1.71 X10^3/ul (0.83-4.51); Lymphocyte % 24.4 % (19-41); Mean Corp Hgb Conc 33.9 g/dL (32-36); Mean Corpuscular Hgb 29.3 pg (27.0-32.0); Mean Corpuscular Volume 86.5 fL (81-99); Mean Platelet Vol. 10.8 fl (6.2-12.0); Monocyte# 0.53 X10^3/uL; Monocyte% 7.6 % (0-10); NRBC Flagged by Analyzer 0 % (0-5); Neutrophil # 4.59 X10^3/uL (2.7-7.7); Neutrophil % 65.5 % (47-70); Platelet Count 212 K/mm3 (150-450); RBC Distribution Width CV 13.9 % (11.6-14.6); RBC Distribution Width SD 44.1 fl (35.1-43.9); Red Blood Count 4.37 M/mm3 (4.2-5.4)
[2021-10-11 11:13] LABS: Protein, Urine (Random) 7.5 mg/dL (<11.9); Protein:Creat Ratio 100 mg/g CRE (0-200)
[2021-10-11 11:20] LABS: Glucose Challenge Gest 1H 50g 105 mg/dL (70-140)
[2021-10-11 11:34] LABS: Rubella IgG Reactive (Nonreactive)
== END 2021-10-11 23:59 | disposition home or self-care (01) ==
LOC: LABSPEC 10:06 → PAVLAB 10:23
PROVIDERS: PCP Family Medicine; Referring Provider Obstetrics & Gynecology; Visit Provider Obstetrics & Gynecology
DX: O99.210 Obesity complicating pregnancy, unspecified trimester (principal); O99.891 Other specified diseases and conditions complicating pregnancy; R76.0 Raised antibody titer; Z87.59 Personal history of other complications of pregnancy, childbirth and the puerperium
CPT/HCPCS: 36415; 82570; 82950; 84156; 85025; 86762; 86850; 86900; 86901; 87086; 87088

== ENCOUNTER → 2021-12-18 | Outpatient (CLI) | payer SELFPAY ==
--- NOTE | 2021-12-18 12:51 | US_ITS ---
EXAM: US SECOND OR THIRD TRIMESTER , TRANSABDOMINAL CLINICAL INDICATION: anatomy TECHNIQUE: Transabdominal obstetrical ultrasound of the maternal pelvis and a second or third trimester with image documentation. This report was created using [employer] report generation technology. COMPARISON: None. FINDINGS: FETUS: Single fetus HEART RATE: 143 bpm PRESENTATION: Variable PLACENTA: Posterior low-lying without previa. No evidence of abruption. AMNIOTIC FLUID: Unremarkable. ANATOMY: No anatomical abnormalities are visualized. Intracranial structures, facial features, diaphragm, stomach, abdominal wall, cord insertion, three-vessel cord, kidneys and bladder are normal. spine is intact. Normal extremities. BIOMETRICS GESTATIONAL AGE: Estimated gestational age by clinical dating is 19 weeks 1 day. Ultrasound gestational age is 18 weeks 4 days. NOY: May 13, 2022 by clinical dating EFW: 266 g which is 42nd percentile BPD: 4.2 cm HC: 15.7 cm AC: 13.9 cm FL: 2.8 cm MATERNAL: UTERUS: Unremarkable. No myometrial mass. CERVIX: 5 cm in length. The cervix is closed. ADNEXA: Unremarkable. No adnexal masses. FREE FLUID: None. IMPRESSION: Single live intrauterine with gestational age of 19 weeks 1 day by clinical dating and 18 weeks 4 days by ultrasound measurements. Electronically Signed: Siav Nelson MD at 8:42 EDT , EXAM: US , TRANSVAGINAL CLINICAL INDICATION: anatomy TECHNIQUE: Real-time transvaginal obstetrical ultrasound of the maternal pelvis and a first trimester with image documentation. Transvaginal imaging was used for better evaluation of the fetus and adnexa. This report was created using [employer] report generation technology. COMPARISON: None. FINDINGS: GESTATION: Endovaginal scanning of the pelvis demonstrates normal closed cervix measuring 4.5 cm in length. Low-lying posterior placenta without previa. US/OB Anatomy Scan IMPRESSION: Closed normal cervix. No placenta previa. Electronically Signed: Siva Nelson MD at 8:44 EDT ,
== END | disposition home or self-care (01) ==
PROVIDERS: PCP Family Medicine; Visit Provider Obstetrics & Gynecology
CPT/HCPCS: 76805; 76817

== ENCOUNTER → 2022-03-19 | Outpatient (CLI) | payer SELFPAY ==
[2022-03-19 10:23] LABS: Absolute Lymphocyte Count 1.74 X10^3/uL (0.83-4.51); Absolute Neutrophil Count 7.7 X10^3/uL (2.0-7.7); Basophil# 0.02 X10^3/uL; Basophil% 0.2 % (0-1); Eosinophil# 0.09 X10^3/uL; Eosinophils% 0.9 % (0-5); Hematocrit 33.2 % (37-47); Hemoglobin 11.1 g/dL (12.0-15.0); Lymphocyte # 1.74 X10^3/ul (0.83-4.51); Lymphocyte % 17.2 % (19-41); Mean Corp Hgb Conc 33.4 g/dL (32-36); Mean Corpuscular Hgb 30.3 pg (27.0-32.0); Mean Corpuscular Volume 90.7 fL (81-99); Mean Platelet Vol. 10.9 fl (6.2-12.0); Monocyte# 0.46 X10^3/uL; Monocyte% 4.6 % (0-10); NRBC Flagged by Analyzer 0 % (0-5); Neutrophil # 7.73 X10^3/uL (2.7-7.7); Neutrophil % 76.5 % (47-70); Platelet Count 208 K/mm3 (150-450); RBC Distribution Width CV 14.6 % (11.6-14.6); RBC Distribution Width SD 48.9 fl (35.1-43.9); Red Blood Count 3.66 M/mm3 (4.2-5.4); White Blood Count 10.1 K/mm3 (4.4-11.0)
[2022-03-19 10:31] LABS: Glucose Challenge Gest 1H 50g 156 mg/dL (70-140)
--- NOTE | 2022-03-19 11:19 | US_ITS ---
STUDY: SECOND AND THIRD TRIMESTER OBSTETRICAL ULTRASOUND - LIMITED REASON FOR EXAM: Female, 27 years old . growth. LMP: 08/06/2021 PRIOR ULTRASOUND: Comparison is made with prior study dated 12/18/2021. TECHNIQUE: Transabdominal TECHNICAL QUALITY: Adequate. FINDINGS: There is a single intrauterine fetus. The fetus is in a cephalic presentation. There is demonstrated cardiac activity with a heart rate of 145 bpm. There is a normal amniotic fluid volume. The largest amniotic fluid pocket measures 6.7 cm x 3.3 cm. The amniotic fluid index (HUMPHREY) is 18.75 cm. The placenta is posterior in location and is not low lying. There are Grade 1 placental changes. The cervix measures 5.7 cm in length. BIOMETRY: BPD: 7.73 cm: 31 weeks, 0 days HC: 30.36 cm: 33 weeks, 5 days AC: 27.89 cm: 31 weeks, 6 days FL: 6.13 cm: 31 weeks, 5 days Age by LMP: 32 weeks, 1 days. NOY by LMP: 05/03/2022. age by prior US: 31 weeks, 4 days. NOY by prior US: 05/17/2022. age by current US: 32 weeks, 3 days. NOY by current US: 05/01/2022. Estimated weight: 1852 grams, +/- 278 grams, 31 percentile. US/OB Limited With Biometrics IMPRESSION: Single live intrauterine gestation with a mean gestational age of 31 weeks and 4 days. The measurements obtained today fall within the normal range. Electronically Signed: Chago Mccormick MD at 13:43 EDT ,
== END | disposition home or self-care (01) ==
PROVIDERS: PCP Family Medicine; Referring Provider Obstetrics & Gynecology; Visit Provider Obstetrics & Gynecology
DX: O26.893 Other specified pregnancy related conditions, third trimester (principal); Z3A.31 31 weeks gestation of pregnancy; Z67.91 Unspecified blood type, Rh negative
CPT/HCPCS: 36415; 76816; 82950; 85025; 86900; 86901

== ENCOUNTER → 2022-03-27 | Outpatient (CLI) | payer OTHER, SELFPAY ==
[2022-03-27 10:52] LABS: Glucose GTT-Gestation. Fasting 81 mg/dL (<105)
[2022-03-27 11:43] LABS: Glucose GTT-Gestational 1 Hr 167 mg/dL (<190)
[2022-03-27 13:13] LABS: Glucose GTT-Gestational 2 Hr 148 mg/dL (<165)
[2022-03-27 14:14] LABS: Glucose GTT-Gestational 3 Hr 74 L (<145)
== END | disposition home or self-care (01) ==
PROVIDERS: PCP Family Medicine; Referring Provider Obstetrics & Gynecology; Visit Provider Obstetrics & Gynecology
DX: O99.810 Abnormal glucose complicating pregnancy (principal)
CPT/HCPCS: 36415; 82951; 82952

== ENCOUNTER 2022-03-31 20:30 | Outpatient (CLI) | payer OTHER, SELFPAY ==
[2022-03-31 20:53] VITALS: TEMP 37.1
[2022-03-31 20:58] VITALS: BP 142/71; PULSE 112
[2022-03-31 21:00] VITALS: BMI 38.3
--- NOTE | 2022-04-01 10:06 | OB.TRI.HP_ITS ---
HPI - General General Date of Admission: 04/01/22 HPI Narrative KEIKO FOWLER, is a 27 y/o @ 33 weeks 6 days presenting with some lower pelvic cramping.She denies loss of fluid, vaginal bleeding, or dec fm Maternal Data Information NOY Calculator Estimated Delivery Date Method Current WG Current Estimate 05/13/22 Ultrasound #1 34w 0d Other Estimates 05/19/22 LMP (Uncertain) 33w 1d PFSH PFSH Home Medications prenat.vits,pako,cao-chnj-dsptl 1 tab PO DAILY Check with primary doctor 03/04/19 [History Last Taken 08/19/19 10:00] enoxaparin 40 mg/0.4 mL subcutaneous syringe (Lovenox) 40 mg (0.4 mL) subcut QDAY 30 days #12 mL 10/03/21 [Rx Last Taken Unknown] Allergy/AdvReac Type Severity Reaction Status Date / Time No Known Allergies Allergy Verified 03/27/22 15:51 Family History Grandfather Diabetes Heart disease Cancer Grandmother Thyroid disorder Cataract Surgical History Hx laparoscopic cholecystectomy Social History adopted: No household members: spouse and children number of children: 2 current occupation: Homemaker Smoking Status: Never smoker alcohol intake: never substance use type: does not use seatbelt use: sometimes do you feel safe at home: Yes 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 Date Name GA/Weeks Outcome Route Bth Weight Infant Gen Labor Lgth Anes thesia Del Locatn Provider FOB 06/11/18 Noah 39 live - full term 7 lbs 1 oz Male [address] Bret Tee 08/21/19 Ruy 37 live - full term Male none [facility] IAN 10/02/20 spontaneous 03/04/21 spontaneous Delivery Date: 08/21/19 Last Updated by: Nica HAMLIN. PreE Delivery Date: 10/02/20 Last Updated by: Jennifer Linares NP, COMMERCIAL CONSTRUCTION SUPERINTENDENT-C twin Visit Details Expected Delivery Route/Plan Labor Preferences- CB/BF classes: [] labor support person: [] labor intervention preferences: [] pain management options preferred: [] cut cord/dad catch: [] : [] PP control planned: [] discussed possible routes of delivery and associated risks: [] special requests: [] Plans Covid status: [] Flu vaccine: [] Tdap vaccine: [] Rhogam: [] LARC form signed: [] Problem list reviewed and updated with the most current plan of care details and appropriate orders placed. Relevant counseling for the gestational age provided. Continue routine care and follow up unless otherwise noted in visit notes/problem list details OB Flowsheet Initial Weight: Not Recorded Date -?-?-?-?-?-?-?-?-?-?-?-?- EGA Weight BP Urine Prot -?-?-?-?-?-?-?-?-?-?-?-?- Glucose FHR FuHt Pres Dilation -?-?-?-?-?-?-?-?-?-?-?-?- Effaced St Visit Note 10/11/21 -?-?-?-?-?-?-?-?-?--?-?-?- 9w 3d 201 lb 4 oz 120/80 -?-?-?-?-?-?-?-?-?-?-?-?- -?-?-?-?-?-?-?-?-?-?-?-?- JV- CRL off by 6 days and another views 8 days. New noy 05/13/22 11/10/21 -?-?-?-?-?-?-?-?-?-?-?-?- 13w 5d 196 lb 130/82 Negative -?-?-?-?-?-?-?-?-?-?-?-?- Negative 160 -?-?-?-?-?-?-?-?-?-?-?-?- JV- bedside ultr asound reassuring. continue lovenox for possible APL and h/o pre-e. pt states she is moving [place] 03/12/22 -?-?-?-?-?-?-?-?-?-?-?-?- 31w 1d 210 lb 131/87 Negative -?-?-?-?-?-?-?-?-?-?-?-?- Negative 150 31 -?-?-?-?-?-?-?-?-?-?-?-?- SM- no vb lof go od fm no regular ctx, was taking OTC cupplement for elevated bps as given by spa supervisor, instructed to stop. 03/19/22 -?-?-?-?-?-?-?-?-?-?-?-?- 32w 1d 213 lb 138/80 Negative -?-?-?-?-?-?-?-?-?-?-?-?- Negative 150 -?-?-?-?-?-?-?-?-?-?-?-?- MH-NST only reac tive. US today to recheck placenta 03/27/22 -?-?-?-?-?-?-?-?-?-?-?-?- 33w 2d 211 lb 8 oz 129/84 Nega tive -?-?-?-?-?-?-?-?-?-?-?-?- Negative 150 -?-?-?-?-?-?-?-?-?-?-?-?- JV- nst reactive , no complaints. ROS Constitutional Constitutional: Reports systems reviewed and no addt'l complaints, except as documented Gastrointestinal Gastrointestinal: Denies bloating, constipation, cramping, diarrhea, nausea or vomiting Genitourinary Genitourinary: Reports other Details: Denies vaginal odor, vaginal bleeding, or vaginal discharge ; Denies difficulty urinating or flank pain Physical Exam HEENT normocephalic Resp normal respiratory effort and normal air movement no CVA tenderness Extremity normal to inspection General Extremity: edema bilateral (trace ) NST FHR Rate Baby A Baseline: 155 Variability:: Moderate Accelerations:: 10 x 10 Decelerations:: None NST Reactive:: Yes FHR Category:: Category I Assessment & Plan (1) Abnormal glucose affecting : COMMENT: 3 hr GTT normal (2) Low lying placenta nos or without hemorrhage, second trimester: COMMENT: FU US at 28 weeks, pelvic rest RESOLVED- repeat u/s shows resolution of low lying. now posterior. (3) Supervision of high risk , antepartum: COMMENT: Grav 5/2 NOY: 05/19/22. PC: Ruy Zamora. Spouse:Randal (4) History of pre-eclampsia: COMMENT: Del at 37 wk w 2nd . Baseline labs norm (5) : QUALIFIERS: Weeks of gestation: 33 weeks Qualified Code(s): Z3A.33 - 33 weeks gestation of COMMENT: declines genetic and carrier screen. Anatomy normal (6) Antiphospholipid antibody positive: COMMENT: lovenox, baby asa. (7) History of recurrent miscarriages: COMMENT: APL panel +. SAB 09/2020 and 02/2021 (8) Rh negative status during : QUALIFIERS: Qualified Code(s): Z67.91 - Unspecified blood type, Rh negative COMMENT: rhogam 28 wk, Had Rhogam injection 03/05/22, pp and prn w bleeding (9) Family history of pyloric stenosis: COMMENT: first child diagnosed after and had surgery (10) False labor before 37 completed weeks of gestation: COMMENT: 03/31/22 no contractions on monitor, dehydration suspected. PLAN: nst reactive for gestational age and not showing signs of contractions. reassurance given and labor precautions discussed Charges/Coding Multi Select Codes Visit Charges Office Visit/Consults: 07080 OV L3 Est Urinary/Genital Urinary/Genital CPT Codes: 24191-39 non-stress test Interp
== END 2022-03-31 21:33 | disposition home or self-care (01) ==
LOC: WPOUT 20:43 → WP 20:44
PROVIDERS: PCP Family Medicine; Visit Provider Obstetrics & Gynecology
DX: O47.03 False labor before 37 completed weeks of gestation, third trimester (principal); O99.810 Abnormal glucose complicating pregnancy; Z3A.33 33 weeks gestation of pregnancy; Z67.91 Unspecified blood type, Rh negative
CPT/HCPCS: 59025; 59050; 99218; G0378

== ENCOUNTER → 2022-04-06 | Outpatient (CLI) | payer OTHER, SELFPAY | END | disposition home or self-care (01) | LOC: LABSPEC 11:44 | PROVIDERS: PCP Family Medicine; Referring Provider Obstetrics & Gynecology; Visit Provider Obstetrics & Gynecology | DX: N89.8 Other specified noninflammatory disorders of vagina (principal) | CPT/HCPCS: 87070; 87205 ==

== ENCOUNTER → 2022-04-20 | Outpatient (CLI) | payer SELFPAY ==
--- NOTE | 2022-04-20 11:02 | US_ITS ---
STUDY: SECOND AND THIRD TRIMESTER OBSTETRICAL ULTRASOUND - LIMITED REASON FOR EXAM: Female, 27 years old 36w growth ultrasound LMP: 08/06/2021. PRIOR ULTRASOUND: Comparison is made with prior study dated 03/19/2022. TECHNIQUE: Transabdominal TECHNICAL QUALITY: Adequate. FINDINGS: There is a single intrauterine fetus. The fetus is in a transverse lie with the head on the maternal right side. There is demonstrated cardiac activity with a heart rate of 145 bpm. There is a normal amniotic fluid volume. The largest amniotic fluid pocket measures 6.1 cm. The amniotic fluid index (HUMPHREY) is 14.1 cm. The placenta is posterior in location and is not low lying. There are Grade 1 placental changes. The cervix measures 4.9 cm in length. BIOMETRY: BPD: 8.6 cm: 34 weeks, 6 days HC: 32.7 cm: 37 weeks, 1 days AC: 32.1 cm: 36 weeks, 1 days FL: 7.2 cm: 36 weeks, 6 days Age by LMP: 36 weeks, 5 days. NOY by LMP: 05/13/2022. age by prior US: 37 weeks, 0 days. NOY by prior US: 05/11/2022. age by current US: 36 weeks, 1 days. NOY by current US: 05/17/2022. Estimated weight: 2858 grams, +/- 429 grams, 39 percentile. US/OB Limited With Biometrics IMPRESSION: Single live intrauterine gestation with a mean gestational age of 37 weeks. The measurements obtained today following thin the normal expected range. Electronically Signed: Chago Mccormick MD at 15:21 EDT ,
== END | disposition home or self-care (01) ==
PROVIDERS: PCP Family Medicine; Referring Provider Obstetrics & Gynecology; Visit Provider Obstetrics & Gynecology
DX: Z34.93 Encounter for supervision of normal pregnancy, unspecified, third trimester (principal); Z3A.37 37 weeks gestation of pregnancy
CPT/HCPCS: 76816; 87081

== ENCOUNTER 2022-04-25 03:50 | Inpatient (IN) | payer SELFPAY, OTHER ==
[2022-04-24 22:21] VITALS: BP 138/79; PULSE 88
[2022-04-24 22:23] VITALS: TEMP 37.1
[2022-04-24 22:36] VITALS: BMI 39.0
[2022-04-24 22:43] VITALS: BP 143/83; PULSE 86
[2022-04-24 22:56] VITALS: BP 141/82; PULSE 96
[2022-04-24] MEDS: Lactated Ringers 1,000 ML 999 ML IV (23:05)
[2022-04-24 23:10] VITALS: BP 143/75; PULSE 88
[2022-04-24 23:28] LABS: Hematocrit 34.2 % (37-47); Hemoglobin 11.8 g/dL (12.0-15.0); Mean Corp Hgb Conc 34.5 g/dL (32-36); Mean Corpuscular Hgb 30.9 pg (27.0-32.0); Mean Corpuscular Volume 89.5 fL (81-99); Mean Platelet Vol. 11.1 fl (6.2-12.0); Platelet Count 201 K/mm3 (150-450); RBC Distribution Width CV 14.9 % (11.6-14.6); RBC Distribution Width SD 48.5 fl (35.1-43.9); Red Blood Count 3.82 M/mm3 (4.2-5.4); White Blood Count 14.1 K/mm3 (4.4-11.0)
[2022-04-24] MEDS: cycloBENZAPRine HCl 10 MG Tablet PO (23:31)
[2022-04-24] MEDS: FLUCONAZOLE 150 MG TABLET PO (23:31)
[2022-04-24] MEDS: Acetaminophen 500 MG Tablet 1000 MG PO (23:34)
[2022-04-24 23:40] LABS: AST(SGOT) 9 U/L (15-37); Alanine Aminotransfer ALT/SGPT 17 U/L (13-56); EST Glomerular Filtration Rate 161 mL/min (>60); Est Glom Filt Rate - Afr Amer 194 mL/min (>60); Estimated Creatinine Clearance 136.04 ml/min; Uric Acid 3.8 mg/dL (2.6-6.0)
[2022-04-25] VITALS (19 sets, daily range): BP systolic 98–139; BP diastolic 51–86; PULSE 75–97; RESP 14–18; TEMP 36.1–37; O2SAT 96–100
[2022-04-25 00:35] LABS: Protein, Urine (Random) 8.9 mg/dL (<11.9); Protein:Creat Ratio 486 mg/g CRE (0-200)
[2022-04-25] MEDS: Lactated Ringers 1,000 ML 999 ML IV (06:34)
[2022-04-25] MEDS: Acetaminophen 500 MG Tablet 1000 MG PO ×3 (06:41→19:11)
[2022-04-25] MEDS: Sodium Citrate/Citric Acid 30 ML UDC PO (06:42)
[2022-04-25 06:48] LABS: Chlamydia Trachomatis by PCR Negative (Negative); Neisserai gonorrhoeae by PCR Negative (Negative); Probe Check PASS; Sample Adequacy Control PASS; Specimen Processing Control PASS
[2022-04-25] MEDS: Cefazolin 2 GM in 0.9% Normal Saline 100 ML IV (07:28)
[2022-04-25] MEDS: Lactated Ringers 1,000 ML 150 ML IV (07:35)
--- NOTE | 2022-04-25 08:28 | HP.PCM.OB_ITS ---
HPI - General General Date of Admission: 04/25/22 HPI Narrative KEIKO FOWLER, is a 27 y/o @ 37 weeks3 days who presents to L&D with back pain and contractions. She takes lovenox that was bridged to heparin recently for a history of antiphospholipid antibody syndrome. Her baby is in a known breech presentation. She was found to have some elevations in blood pressure of 140's/80's. Her Pr: cr ratio was noted in the 400's and a diagnosis of pre-ecalmpsia was made. We discussed that an ECV is likely not the safest option due to her history of being on the blood thinners in the and she consented to a section. Maternal Data Information NOY Calculator Estimated Delivery Date Method Current WG Current Estimate 05/13/22 Ultrasound #1 37w 3d Other Estimates 05/19/22 LMP (Uncertain) 36w 4d PFSH PFSH Medical History (Updated 04/25/22 @ 06:33 by Eugenie Mcneal) Blood clotting disorder Headache Home Medications prenat.vits,pako,jdy-trud-xujvs 1 tab PO DAILY Check with primary doctor 03/04/19 [History Last Taken 08/19/19 10:00] heparin (porcine) 5,000 unit/mL (1 mL) injection cartridge 5,000 unit subcut Q12H 15 days #30 mL 04/20/22 [Rx Last Taken 04/24/22 08:30] Allergy/AdvReac Type Severity Reaction Status Date / Time No Known Allergies Allergy Verified 04/06/22 10:12 Family History Grandfather Diabetes Heart disease Cancer Grandmother Thyroid disorder Cataract Surgical History Hx laparoscopic cholecystectomy Social History adopted: No household members: spouse and children number of children: 2 current occupation: Homemaker Smoking Status: Current some day smoker alcohol intake: never substance use type: does not use seatbelt use: sometimes do you feel safe at home: Yes 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 Date Name GA/Weeks Outcome Route Bth Weight Infant Gen Labor Lgth [facility]esthesia Del [facility] F[facility] 06/11/18 Noah 39 live - full term 7 lbs 1 oz Male [address] Bret Tee 08/21/19 Ruy 37 live - full term Male none [facility] IAN 10/02/20 spontaneous 03/04/21 spontaneous Delivery Date: 08/21/19 Last Updated by: Nica HAMLIN. PreE Delivery Date: 10/02/20 Last Updated by: Jennifer Linares TREE TAPPING LABORER, TREE TAPPING LABORER-C twin Visit Details Expected Delivery Route/Plan Labor Preferences- CB/BF classes: [] labor support person: [] labor intervention preferences: [] pain management options preferred: [] cut cord/dad catch: [] : [] PP control planned: [] discussed possible routes of delivery and associated risks: [] special requests: [] Plans Covid status: [] Flu vaccine: [] Tdap vaccine: [] Rhogam: [] LARC form signed: [] Problem list reviewed and updated with the most current plan of care details and appropriate orders placed. Relevant counseling for the gestational age provided. Continue routine care and follow up unless otherwise noted in visit notes/problem list details OB Flowsheet Initial Weight: Not Recorded Date -?-?-?-?-?-?-?-?-?-?-?-?- EGA Weight BP Urine Prot -?-?-?-?-?-?-?-?-?-?-?-?- Glucose FHR FuHt Pres Dilation -?-?-?-?-?-?-?-?-?-?-?-?- Effaced St Visit Note 10/11/21 -?-?-?-?-?-?-?-?-?-?-?-?- 9w 3d 201 lb 4 oz 120/80 -?-?-?-?-?-?-?-?-?-?-?-?- -?-?-?-?-?-?-?-?-?-?-?-?- JV- CRL off by 6 days and another views 8 days. New noy 9/18/22 03/18/22 -?-?-?-?-?-?-?-?-?-?-?-?- 13w 5d 196 lb 130/82 Negative -?-?-?-?-?-?-?-?-?-?-?-?- Negative 160 -?-?-?-?-?-?-?-?-?-?-?-?- JV- bedside ultr asound reassuring. continue lovenox for possible APL and h/o pre-e. pt states she is moving to [place] 03/12/22 -?-?-?-?-?-?-?-?-?-?-?-?- 31w 1d 210 lb 131/87 Negative -?-?-?-?-?-?-?-?-?-?-?-?- Negative 150 31 -?-?-?-?-?-?-?-?-?-?-?-?- SM- no vb lof go od fm no regular ctx, was taking OTC cupplement for elevated bps as given by loading unit operator powder charging, instructed to stop. 03/19/22 -?-?-?-?-?-?-?-?-?-?-?-?- 32w 1d 213 lb 138/80 Negative -?-?-?-?-?-?-?-?-?-?-?-?- Negative 150 -?-?-?-?-?-?-?-?-?-?-?-?- MH-NST only reac tive. US today to recheck placenta 03/27/22 -?-?-?-?-?-?-?-?-?-?-?-?- 33w 2d 211 lb 8 oz 129/84 Nega tive -?-?-?-?-?-?-?-?-?-?-?-?- Negative 150 -?-?-?-?-?-?-?-?-?-?-?-?- JV- nst reactive , no complaints. 04/06/22 -?-?-?-?-?-?-?-?-?-?-?-?- 34w 5d 210 lb 8 oz 131/78 Nega tive -?-?-?-?-?-?-?-?-?-?-?-?- Negative 140 -?-?-?-?-?-?-?-?-?-?-?-?- SM- no vb lof no regular ctx co vaginal itching red top sent 04/13/22 -?-?-?-?-?-?-?-?-?-?-?-?- 35w 5d 209 lb 126/86 Negative -?-?-?-?-?-?-?-?-?-?-?-?- Negative 140 -?-?-?-?--?-?-?-?-?-?-?-?- SM- no vb lof go od fm irregular ctx 04/20/22 -?-?-?-?-?-?-?-?-?-?-?-?- 36w 5d 209 lb 122/68 Negative -?-?-?-?-?-?-?-?-?-?-?-?- Negative 145 36 Breech -?-?-?-?-?-?-?-?-?-?-?-?- JV- nst is react mary but need to switch to heparin. bb is breech. has formal scan today, we discussed cesaran at 39 if not moved by then. ROS Constitutional Constitutional: Denies change in weight, fatigue, fever(s), headache(s), poor appetite or weakness Eyes Eyes: Denies blurry vision, change in vision, seeing flashes or spots in vision ENT HEENT: Denies dizziness, headache(s), loss taste/smell or sore throat Cardiovascular Cardiovascular: Denies chest pain, dizziness, dyspnea, irregular heart rhythm, leg edema, palpitations, rapid heart rate or vomiting Respiratory/Chest Respiratory/Chest: Denies chest tightness, cough, dyspnea or breast pain Gastrointestinal Gastrointestinal: Denies abdominal pain, anorexia, constipation, cramping, diarrhea, hemorrhoids, vomiting or weight changes Genitourinary Genitourinary: Denies dysuria, flank pain, genital lesions, genital pain, urinary frequency or urinary urgency Musculoskeletal Musculoskeletal: Denies back pain, difficulty walking, joint pain, limited range of motion, muscle cramps or numbness Integumentary Integumentary: Denies lesions or unusual bruising Neurologic Neurologic: Denies abnormal movements, abnormal speech, dizziness, numbness, seizure-like activity or syncope Psychiatric Psychiatric: Denies anxiety, behavioral changes, change in appetite, change in libido, cognitive impairment, confusion, depression, difficulty concentrating, hallucinations or suicidal thoughts Endocrine Endocrinology: Denies excessive sweating, polydipsia or polyuria Hematologic/Lymphatic Hematologic/Lymphatic: Denies easy bleeding, easy bruising or lymphadenopathy Allergic/Immunologic Allergic/Immunologic: Denies itchy eyes, lip swelling, seasonal rhinorrhea, rhinitis, throat swelling, tongue swelling, eczemia, wheezing or asthma Vital Signs Vital Signs Vital Signs: 04/24/22 22:21 04/24/22 22:21 04/24/22 22:43 Temperature Temperature Source Pulse Rate 88 Respiratory Rate Blood Pressure 138/79 H 143/83 H Blood Pressure Mean BP Systolic 138 143 BP Diastolic 79 83 Blood Pressure Source Blood Pressure Position Blood Pressure Location Oxygen Delivery Method 04/24/22 22:43 04/24/22 22:56 04/24/22 22:56 Temperature Temperature Source Pulse Rate 86 96 Respiratory Rate Blood Pressure 141/82 H Blood Pressure Mean BP Systolic 141 BP Diastolic 82 Blood Pressure Source Blood Pressure Position Blood Pressure Location Oxygen Delivery Method 04/24/22 23:10 04/24/22 23:10 04/25/22 02:10 Temperature Temperature Source Pulse Rate 88 Respiratory Rate Blood Pressure 143/75 H 122/64 H Blood Pressure Mean BP Systolic 143 122 BP Diastolic 75 64 Blood Pressure Source Blood Pressure Position Blood Pressure Location Oxygen Delivery Method 04/25/22 02:10 04/25/22 02:10 04/25/22 02:10 Temperature 97.5 F L Temperature Source Temporal Pulse Rate 85 Respiratory Rate Blood Pressure Blood Pressure Mean BP Systolic BP Diastolic Blood Pressure Source Blood Pressure Position Blood Pressure Location Oxygen Delivery Method 04/24/22 22:23 04/24/22 22:23 04/25/22 04:51 Temperature 98.8 F Temperature Source Temporal Pulse Rate Respiratory Rate Blood Pressure 139/86 H Blood Pressure Mean BP Systolic 139 BP Diastolic 86 Blood Pressure Source Blood Pressure Position Blood Pressure Location Oxygen Delivery Method 04/25/22 04:51 04/25/22 05:13 Temperature 98.6 F Temperature Source Temporal Pulse Rate 86 83 Respiratory Rate 16 Blood Pressure 139/86 H Blood Pressure Mean 103 BP Systolic BP Diastolic Blood Pressure Source Monitor Blood Pressure Position Semi-Fowlers Blood Pressure Location Left Arm Oxygen Delivery Method Room Air Weight Weight: 213 lb 6.4 oz Body Mass Index (BMI) 39.0 Physical Exam Const alert, oriented x3, no apparent distress and healthy appearing General Appearance: cooperative; Negative for anxious HEENT normocephalic Face and Sinus: normal facial exam Eyes EOMs intact bilaterally and no scleral icterus General Eye: normal appearance of both eyes Neck full ROM and supple Lymph Lymphatic: no lymphadenopathy noted Chest Chest: abnormal inspection of the chest Resp normal respiratory effort Effort and Inspection: able to speak in complete sentences Cardio regular rate GI soft to palpation and non-tender Inspection: gravid Palpation: soft; Negative for tender external exam normal Amniotic Fluid: other bedside ultrasound shows the head in the left upper quadrant back down. normal HUMPHREY. Cx closed thick and high Back/Spine no CVA tenderness Extremity normal to inspection, full ROM and no clubbing, cyanosis or edema General Extremity: Negative for calf tenderness or edema Skin Lesions: no lesions Rashes: no rashes Psych mental status grossly normal Labs Labs Labs: Blood Type A NEGATIVE Antibody Screen NEGATIVE Hct 34.2 % (37-47) L Hgb 11.8 g/dL (12.0-15.0) L Obstetrics US Syphilis Total Ab Pending Rubella IgG Antibody Reactive (Nonreactive) Hep Bs Antigen Non-Reactive (Nonreactive) HIV 1&2 Antibody Non-Reactive (Nonreactive) Glucose 1 Hr 50 gm 156 mg/dL (70-140) H Rhogam given: No Assessment & Plan (1) Family history of pyloric stenosis: COMMENT: first child diagnosed after and had surgery (2) Rh negative status during : QUALIFIERS: Qualified Code(s): Z67.91 - Unspecified blood type, Rh negative COMMENT: rhogam 28 wk, Had Rhogam injection 03/05/22, pp and prn w bleeding (3) History of recurrent miscarriages: COMMENT: APL panel +. SAB 09/2020 and 02/2021 (4) Antiphospholipid antibody positive: COMMENT: lovenox, baby asa. (5) : QUALIFIERS: Weeks of gestation: 36 weeks Qualified Code(s): Z3A.36 - 36 weeks gestation of COMMENT: GBS Negative, declines genetic and carrier screen. Anatomy normal (6) History of pre-eclampsia: COMMENT: Del at 37 wk w 2nd . Baseline labs norm (7) Supervision of high risk , antepartum: COMMENT: PRR (SP) NOY: 05/19/22. PC: Ruy Zamora. Spouse:Randal (8) Abnormal glucose affecting : COMMENT: 3 hr GTT normal (9) Transverse lie of fetus: PLAN: Plan plan for section due to breech presentation, pre-eclampsia, 37 + weeks gestation. ancef 2 grams ERAS protocol.
--- NOTE | 2022-04-25 08:32 | OP.PCM_ITS ---
Assessment & Plan (1) Family history of pyloric stenosis: COMMENT: first child diagnosed after and had surgery (2) Rh negative status during : QUALIFIERS: Qualified Code(s): Z67.91 - Unspecified blood type, Rh negative COMMENT: rhogam 28 wk, Had Rhogam injection 03/05/22, pp and prn w bleeding (3) History of recurrent miscarriages: COMMENT: APL panel +. SAB 09/2020 and 02/2021 (4) Antiphospholipid antibody positive: COMMENT: lovenox, baby asa. (5) : QUALIFIERS: Weeks of gestation: 36 weeks Qualified Code(s): Z3A.36 - 36 weeks gestation of COMMENT: GBS Negative, declines genetic and carrier screen. Anatomy normal (6) History of pre-eclampsia: COMMENT: Del at 37 wk w 2nd . Baseline labs norm (7) Supervision of high risk , antepartum: COMMENT: PRR (SP) NOY: 05/19/22. PC: Ruy Zamora. Spouse:Randal (8) Abnormal glucose affecting : COMMENT: 3 hr GTT normal (9) Transverse lie of fetus: COMMENT: breech on 04/25- head left upper quadrant Maternal Data Information NOY Calculator Estimated Delivery Date Method Current WG Current Estimate 05/13/22 Ultrasound #1 37w 3d Other Estimates 05/19/22 LMP (Uncertain) 36w 4d Final NOY Source: US <20 weeks Details Operative Information Date of Procedure: 04/25/22 Pre-Operative Diagnosis: @ 37 weeks 2 days, breech presentation, antiphospholipid antibody syndrome, pre-eclampsia Post-Operative Diagnosis: @ 37 weeks 2 days, breech presentation, antiphospholipid antibody syndrome, pre-eclampsia Classification: Scheduled Procedure Type: low transverse senior sharepoint architect #1: Yael Ramos Type of Anesthesia: Spinal Antibiotic Given: Ancef 2 grams IV x1 Findings Description of Procedure: Spinal anesthesia was placed without difficulty. Nails catheter was placed. The patient was placed in the dorsal supine position with leftward tilt. Patient was prepped and draped in the normal sterile fashion. Pfannenstiel skin incision was made with the scalpel and carried through to the underlying layer of fascia with the scalpel. Fascia was nicked in the midline and the incision extended laterally. The rectus bellies were dissected off superiorly and inferiorly with out complication both sharply and bluntly. The peritoneum was entered digitally. The incision was stretched and a low transverse uterine incision was made with the scalpel. The 's head was found at the left upper quadrant and converted to vertex. The infant's head was delivered atraumatically followed by the anterior and posterior shoulders without complication the rest of the delivered. The cord was clamped and cut and the was handed off to awaiting nurse. The placenta was delivered spontaneously immediately following and was noted to be intact and have a three- vessel cord. The uterus was exteriorized cleared of all clots and debris, and the incision was closed in a double layer closure using #1 Vicryl and #1 Monocryl. The ovaries and fallopian tubes were noted to be within normal limits. The uterus was returned to the maternal abdomen and gutters were anatoly ared of all clots and debris. The peritoneum was closed with 3-0 Monocryl in a running fashion. Gloves were changed prior to fascial closure. Fascia was closed with 0 PDS in a running fashion. Subcutaneous tissue was copiously irrigated and the skin was closed with 3-0 Monocryl in a subcuticular fashion. Mepilex dressing was applied without complication. Patient was taken to recovery in stable condition. It was discussed with the patient that based on the clinical information obtained during this encounter, combined with her history, at this time I would recommend or, if preferred, repeat section for future deliveries if further pregnancies are desired. Presentation: Positive for Klever Breech Amniotic Membrane Rupture Type: Artificial Amniotic Fluid Description: Clear Placental Delivery Description: Manual Removal Placenta Disposition: [facility] Cord Vessel Description: 3 Vessels Cord Entanglement: None Infant A Gender: Female (1 minute): 8 (5 minute): 8 Delayed Cord Clamping: Yes Complications Risks of Surgery Discussed w/Patient: Anesthesia Risks, Need for Future C- Sections and Availability of other non-permanent control options Multi Select Codes Urinary/Genital Urinary/Genital CPT Codes: 85433 Delivery [facility]
[2022-04-25 08:34] LABS: Syphilis Antibodies Non-reactive
[2022-04-25 08:58] LABS: HIV - WCH Non-Reactive (Nonreactive); Hepatitis B Surface Antigen Non-Reactive (Nonreactive); Hepatitis C Antibody Non-Reactive (Nonreactive)
[2022-04-25] MEDS: Oxytocin 30 units/NS 500 ml 30 UNITS/500 ML IV.SOLN 167 UNITS IV (09:09)
[2022-04-25] MEDS: Ketorolac 30 MG/ML Syringe IV ×3 (09:13→21:42)
--- NOTE | 2022-04-25 11:09 | NURSING ---
Report given to Mindi RN and Rey BURRELL. Aware that waiting on blood type to result for rho lorraine workup on mother.
--- NOTE | 2022-04-25 11:12 | NURSING ---
Received report from Demi Green RN at 1109 and now taking over pt care.
[2022-04-25] MEDS: Lactated Ringers 1,000 ML 100 ML IV (12:13)
[2022-04-25] MEDS: 0.9% Saline Lock 10 ML Syringe IV (21:42)
[2022-04-25] MEDS: Enoxaparin 40 MG/0.4 ML Syringe SC (21:43)
--- NOTE | 2022-04-26 00:20 | DCINST_ITS ---
Discharge Instructions Diet Discharge Diet: No restrictions Activity Discharge Activity: May Not Drive (for 2 weeks or while taking narcotic pain medications.), May Shower and May Take a Tub Bath (in 7 days.) May resume sexual activity in: 4-6 weeks Weight Bearing Status: Full weight bearing Lifting Restrictions: 20 pounds Dressing / Incision Call your doctor if your incision/area has: Continuous Slow Oozing, Sudden Increased Bleeding, Increased Pain/ Swelling, Increased Redness and Foul Smelling Discharge Call your doctor if you observe: Fever of 101 or Higher and Using more than 1 pad per hour Suture Line Care: Avoid Pulling/Pushing and Avoid Pinching/Bending Cleanse incision/area with: Soap & Water and Keep Dressing Clean & Dry Follow Up Care Please Follow Up With: Margie Singh DO When: Call [phone] to make an appointment for an incision check in 1-2 weeks. Test Results: Test results from this visit will be discussed in further detail at your follow- up appointment, if applicable. Discharge Plan Admission Admit Date/Time: 04/25/22 03:50 Attending Provider: Margie Singh Primary Care Provider: Evan Lopez Discharge Orders/Prescriptions Prescriptions: No Action prenat.vits,pako,[id number] Tablet 1 tab PO DAILY heparin (porcine) 5,000 unit/mL (1 mL) cartridge 5,000 unit subcut Q12H 15 Days Qty: 30 0RF Referrals / Follow Up: Evan Lopez DO [Primary Care Provider] -
[2022-04-26] MEDS: Acetaminophen 500 MG Tablet 1000 MG PO ×4 (00:50→19:52)
[2022-04-26] MEDS: Ketorolac 30 MG/ML Syringe IV (03:53)
[2022-04-26] MEDS: 0.9% Saline Lock 10 ML Syringe IV (03:54)
[2022-04-26 05:00] VITALS: BP 107/54; PULSE 70; RESP 16; TEMP 36.1; O2SAT 99
[2022-04-26 06:19] LABS: Hematocrit 27.3 % (37-47); Hemoglobin 9.1 g/dL (12.0-15.0); Mean Corp Hgb Conc 33.3 g/dL (32-36); Mean Corpuscular Hgb 30.3 pg (27.0-32.0); Mean Platelet Vol. 10.9 fl (6.2-12.0); Platelet Count 186 K/mm3 (150-450); RBC Distribution Width CV 15.3 % (11.6-14.6); RBC Distribution Width SD 50.4 fl (35.1-43.9); White Blood Count 10.1 K/mm3 (4.4-11.0)
--- NOTE | 2022-04-26 07:41 | PCM.PN.OB ---
Subjective Subjective Patient doing well without complaints. Tolerating PO. Ambulating and voiding without difficulty. feeding well. Denies chest pain, shortness of breath, calf pain/swelling, fevers, chills, lightheadedness. Objective Data Objective Data Vital Signs: Vital Signs Temp Pulse Resp BP Pulse Ox O2 Del Method 97.0 F L 70 16 107/54 L 99 Room Air 04/26/22 05:00 04/26/22 05:00 04/26/22 05:00 04/26/22 05:00 04/26/22 05:00 04/26/22 05:00 Oxygen Delivery Method Room Air Weight: 213 lb 6.4 oz Body Mass Index (BMI) 39.0 Intake & Output: Intake and Output for Last 24 Hours 04/24/22 04/25/22 04/26/22 23:59 23:59 23:59 Intake Total 500 / 500 3340.83 / 3340.83 Output Total 2450 / 2450 Balance 500 / 500 890.83 / 890.83 Lab / Micro Data Result Diagrams: 04/26/22 06:13 04/24/22 23:05 Labs: Laboratory Results - last 24 hr 04/24/22 23:05: Blood Type A NEGATIVE, Antibody Screen Not Reportable 04/24/22 23:05: Antibody Screen NEGATIVE 04/25/22 04:45: Syphilis Total Ab Non-reactive 04/25/22 04:45: Hep Bs Antigen Non-Reactive, Hepatitis C Antibody Non-Reactive, HIV 1&2 Antibody Non-Reactive 04/26/22 05:34: WBC Cancelled, Corrected WBC Cancelled, RBC Cancelled, Hgb Cancelled, Hct Cancelled, MCV Cancelled, MCH Cancelled, MCHC Cancelled, RDW Std Deviation Cancelled, RDW Coeff of Yon Cancelled, Plt Count Cancelled, MPV Cancelled, Diff Path Review Cancelled 04/26/22 06:13: WBC 10.1, RBC 3.00 L, Hgb 9.1 L, Hct 27.3 L, MCV 91.0, MCH 30.3, MCHC 33.3, RDW Std Deviation 50.4 H, RDW Coeff of Yon 15.3 H, Plt Count 186, MPV 10.9 Micro: Microbiology 04/25/22 04:25 Nasal Secretion SARS-CoV-2 Antigen (Rapid) - Final ROS Constitutional Constitutional: Reports systems reviewed and no addt'l complaints, except as documented Cardiovascular Cardiovascular: Reports systems reviewed and no addt'l complaints, except as documented Respiratory/Chest Respiratory/Chest: Reports systems reviewed and no addt'l complaints, except as documented Gastrointestinal Gastrointestinal: Reports systems reviewed and no addt'l complaints, except as documented Physical Exam Const alert, oriented x3 and no apparent distress HEENT Head and Scalp: atraumatic Resp normal respiratory effort GI soft to palpation and non-tender Inspection: incision intact, healing well and drainage (none) Bimanual Exam - Vag & Uterus: uterus non-tender Uterus Palpation: uterus fundus firm (below Umbilicus) Assessment & Plan (1) delivery delivered: COMMENT: LTCS JV PLAN: Plan s/p LT PPD # 1 1. routine post care 2. breast feeding- support given 3. rh negative rhogam PRN 4. rubella immune
[2022-04-26 07:45] VITALS: BP 118/71; PULSE 78; RESP 16; TEMP 36.3; O2SAT 95
[2022-04-26] MEDS: Ibuprofen 600 MG Tablet PO ×3 (09:57→23:00)
[2022-04-26] MEDS: Senna/Docusate Sodium 1 Tablet PO (09:57)
[2022-04-26 14:41] VITALS: BP 124/78; PULSE 90; RESP 16; TEMP 36.2; O2SAT 97
[2022-04-26 21:22] VITALS: BP 127/66; PULSE 87; RESP 16; TEMP 36.4; O2SAT 99
[2022-04-26] MEDS: Enoxaparin 40 MG/0.4 ML Syringe SC (23:01)
[2022-04-27] MEDS: Acetaminophen 500 MG Tablet 1000 MG PO ×4 (01:48→22:12)
[2022-04-27 01:50] VITALS: BP 122/63; PULSE 82; RESP 16; TEMP 36.3; O2SAT 99
[2022-04-27] MEDS: Ibuprofen 600 MG Tablet PO ×3 (04:50→18:01)
--- NOTE | 2022-04-27 08:48 | PCM.PN.OB ---
Subjective Subjective Patient is up in chair in NICU without complaints. She states that she slept on an off during the night. Lochia is mild and pain is minimal. Objective Data Objective Data Vital Signs: Vital Signs Temp Pulse Resp BP Pulse Ox O2 Del Method 97.3 F L 82 16 122/63 H 99 Room Air 04/27/22 01:50 04/27/22 01:50 04/27/22 01:50 04/27/22 01:50 04/27/22 01:50 04/27/22 01:50 Oxygen Delivery Method Room Air Weight: 213 lb 6.4 oz Body Mass Index (BMI) 39.0 Intake & Output: Intake and Output for Last 24 Hours 04/25/22 04/26/22 04/27/22 23:59 23:59 23:59 Intake Total 3340.83 / 3340.83 Output Total 2450 / 2450 Balance 890.83 / 890.83 Lab / Micro Data Result Diagrams: 04/26/22 06:13 04/24/22 23:05 Micro: Microbiology 04/25/22 04:25 Nasal Secretion SARS-CoV-2 Antigen (Rapid) - Final ROS Constitutional Constitutional: Reports systems reviewed and no addt'l complaints, except as documented Cardiovascular Cardiovascular: Denies chest pain, dizziness, dyspnea or irregular heart rhythm Respiratory/Chest Respiratory/Chest: Denies cough, pain on inspiration or shortness of breath at rest Gastrointestinal Gastrointestinal: Denies abdominal pain, nausea or vomiting Genitourinary Genitourinary: Denies burning urination Musculoskeletal Musculoskeletal: Denies muscle cramps, muscle spasms or muscle weakness Neurologic Neurologic: Denies confusion, dizziness, headache(s) or lack of coordination Psychiatric Psychiatric: Denies anxiety, behavioral changes or depression Physical Exam HEENT normocephalic Resp normal respiratory effort and normal air movement GI soft to palpation, non-tender and non-distended Rectal Exam: other Other Details: Incision is clean, dry, and intact no CVA tenderness Extremity normal to inspection General Extremity: edema bilateral (trace ) Assessment & Plan (1) delivery delivered: COMMENT: LT JV (2) Rh negative status during : QUALIFIERS: Qualified Code(s): Z67.91 - Unspecified blood type, Rh negative COMMENT: rhogam 28 wk, Had Rhogam injection 03/05/22, pp and prn w bleeding (3) Antiphospholipid antibody positive: COMMENT: lovenox, baby asa. PLAN: Plan s/p LTCS PPD # 2 1. routine post care 2. breast feeding- support given 3. rh positive 4. rubella immune 5. dc to home tomorrow
[2022-04-27 09:14] VITALS: BP 126/70; PULSE 82; RESP 16; TEMP 36.4; O2SAT 98
[2022-04-27] MEDS: Senna/Docusate Sodium 1 Tablet PO (11:50)
--- NOTE | 2022-04-27 12:30 | CASEMGMT ---
Social Work Assessment Labor and Delivery Unit Patient Address: [address] [place] [address] [address] [place] [address] Phone number: [phone] Date of Intervention: 04/27/2022 Time of Intervention: 1230 Referral source: Social work identification Reason for Referral: Infant in special care nursery; support History obtained from: Medical records and mother of baby (MOB) Mary Ann Masgunjan Household composition: Father of baby (FOB), older children, and MOB's in-laws. Home situation reportedly safe and adequate. Patient's parent/guardian status: MARYJANE is a 27-year-old female, to the FOB. Parents are from the [facility]. MOB denies any history of domestic violence or safety concerns in the relationship with FOB. MOB and FOB now have 3 children together: To Deshaun (06/11/2018), Ruy (08/21/2019), and baby girl Yoselyn (04/25/2022). Medical History: MARYJANE is 5, para 2 now 3 after delivering any. MOB established care with a local ALUMINUM MOLDING MACHINE OPERATOR at 9 weeks and 13 weeks, then returned back to care at 31 weeks. MOB followed with a otolaryngologist between ALUMINUM MOLDING MACHINE OPERATOR visits. MARYJANE did develop preeclampsia and delivered Yoselyn via at 37.3 weeks gestation. Any weight 2900 g at . Apgars 8 and 8. MARYJANE does have a history of 2 spontaneous abortions in 09/2020 and 02/2021. Educational Status: Eighth grade education as is the norm for the [facility] community. No reported issues with reading, writing, or learning. Financial Status: Self-pay/[facility] 8. 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 MOB is a gxth-wn-rhay mother. Supplies: Parents report to have all necessary supplies to care for the infant including a crib, bassinet, car seat, clothing, diapers and wipes. MOB is providing breastmilk. Childcare/Caregiver(s): MOB is primary, with help from family. Transportation: Horse and buggy or hired combine driver Programs/Agencies Involved: No agency involvement nor interested in any agency involvement. Children Services/Legal Issues: None reported. Behavioral Health Issues: Mental Health History: MOB reports that felt down last fall after 2 miscarriages. MOB reports worried a lot during this as a result. Reports however to feel to be coping okay and denied any history of suicidal ideation, planning, intent or attempts. Substance Use History: Denies any substance use history. Family History: No reported family history on the MOB side though FOB side of the family does have some depression and FOB's father history of suicidal ideation. Family/Social Stressors: Maternal preeclampsia and history of 2 miscarriages. Baby now admitted into the special care nursery. Support Systems: MOB reports to have a good support system from family including some younger sisters. MOB reports to be the oldest of 11 children. MOB reports she will have helpers upon home-going to help with the transition and care of things at home. MOB reports FOB is also supportive. ASSESSMENT: Met with MOB, introducing to self and social work role. MOB cooperative and receptive to social work visit. MOB reports to have all necessary supplies to care for the at home and adequate support at home going. MOB acknowledges it is stressful to have the baby in the special care nursery though indicates things are going okay. MOB denies any current concerns regarding mood and anxiety disorders though listen to education about this topic and accepted information to take home. Expressed appreciation for information provided. MOB denies any needs for home-going related to social work services. Good eye contact.Educated MOB that this poem writer is the director of social services for the labor and delivery unit at [facility] and for continuity of care families admitted to the special care nursery, also provide social work services to the special care nursery. PLAN: MOB discharging home when ready and infant will also discharge home to parents when ready from the special care nursery. No other services requested or indicated. -SELENA Snyder, MAGGI *This note was generated with [employer] software. It may contain incorrect words, spelling, and punctuation that were not noted in review of the chart prior to signing*
[2022-04-27 13:52] VITALS: BP 126/57; PULSE 71; RESP 16; TEMP 36.2; O2SAT 98
[2022-04-27 20:10] VITALS: BP 136/69; PULSE 77; RESP 16; TEMP 36.3; O2SAT 99
[2022-04-27] MEDS: Enoxaparin 40 MG/0.4 ML Syringe SC (22:13)
[2022-04-28] MEDS: Ibuprofen 600 MG Tablet PO ×3 (00:11→12:08)
[2022-04-28] MEDS: Acetaminophen 500 MG Tablet 1000 MG PO ×2 (04:06→10:07)
[2022-04-28 04:08] VITALS: BP 126/71; PULSE 80; RESP 18; TEMP 36.2; O2SAT 99
[2022-04-28 07:52] VITALS: BP 134/75; PULSE 72; RESP 16; TEMP 36.2; O2SAT 100
--- NOTE | 2022-04-28 10:37 | PCM.DC.SUM ---
Providers Date of Admission: 04/25/22 Primary Care Physician: Dr. Evan Lopez DO Reason For Visit: PRIMARY C SECTION Diagnosis Discharge Diagnosis (1) delivery delivered: Status: Acute Code(s): O82 - Encounter for delivery without indication (2) Rh negative status during : Status: Acute Code(s): O26.899 - Other specified related conditions, unspecified trimester; Z67.91 - Unspecified blood type, Rh negative Qualifiers: Qualified Code(s): Z67.91 - Unspecified blood type, Rh negative (3) Antiphospholipid antibody positive: Status: Acute Code(s): R76.0 - Raised antibody titer Plan s/p LTCS PPD # 2 1. routine post care 2. breast feeding- support given 3. rh positive 4. rubella immune 5. dc to home tomorrow Medications at Discharge Home Medications prenat.vits,pako,tbd-xvnr-uwggj 1 tab PO DAILY Check with primary doctor 03/04/19 ibuprofen 600 mg tablet 600 mg PO Q6H PRN pain 7 days #30 tabs 04/28/22 oxycodone-acetaminophen 5 mg-325 mg tablet (Percocet) 1 tab PO Q4H PRN pain 7 days #30 tabs 04/28/22 Hospital Course Operations section and - Summary of Care Provided Minutes Spent on Discharge: 20 Hospital Course: Mary Ann Soares is a 27 y/o at 37 weeks gestation who was admitted to labor and delivery for section, breech presentation with pre-eclampsia. Surgery was on 04/25 and she recovered well the day of surgery as she was up and walking before 10 hours. On post days 1-3 she spent most of her time ambulating and sitting in the chair in the NICU. She denied any complaints of headaches or other severe pre-e features and blood pressures were all stable. She was discharge to home on post op day #3. Physical Exam HEENT normocephalic Resp normal respiratory effort and normal air movement GI soft to palpation, non-tender and non-distended Rectal Exam: other Other Details: Incision is clean, dry, and intact no CVA tenderness Extremity normal to inspection General Extremity: edema bilateral (trace ) Weight / BMI Weight Weight: 213 lb 6.4 oz Body Mass Index (BMI) 39.0 ABG / Lab / Microbiology Data Result Diagrams: 04/26/22 06:13 04/24/22 23:05 Microbiology: Microbiology 04/25/22 04:25 Nasal Secretion SARS-CoV-2 Antigen (Rapid) - Final D/C Instructions Discharge Diet: No restrictions May resume sexual activity in: 4-6 weeks Weight Bearing Status: Full weight bearing Call your doctor if your incision/area has: Continuous Slow Oozing, Sudden Increased Bleeding, Increased Pain/ Swelling, Increased Redness and Foul Smelling Discharge Call your doctor if you observe: Fever of 101 or Higher and Using more than 1 pad per hour Suture Line Care: Avoid Pulling/Pushing and Avoid Pinching/Bending Cleanse incision/area with: Soap & Water and Keep Dressing Clean & Dry Please Follow Up With: Margie Singh DO When: Call [phone] to make an appointment for an incision check in 1-2 weeks. Meaningful Use Info Meaningful Use Diagnoses (Choose all that apply): None applicable Discharge Plan Admission Admit Date/Time: 04/25/22 03:50 Primary Reason for Your Visit: section Attending Provider: Margie Singh Primary Care Provider: Evan Lopez Discharge Orders/Prescriptions Prescriptions: New ibuprofen 600 mg tablet 600 mg PO Q6H PRN (Reason: pain) 7 Days Qty: 30 0RF Rx Instructions: one tab every 6 hrs as needed for mild to moderate pain oxycodone-acetaminophen [Percocet] 5-325 mg tablet 1 tab PO Q4H PRN (Reason: pain) 7 Days Qty: 30 0RF Continued prenat.vits,pako,fow-zhfw-ekdyq Tablet 1 tab PO DAILY Discontinued heparin (porcine) 5,000 unit/mL (1 mL) cartridge 5,000 unit subcut Q12H 15 Days Qty: 30 0RF Referrals / Follow Up: Evan Lopez DO [Primary Care Provider] - Disposition Disposition (needs filled in before D/C Order can be placed): Home, Self Care
[2022-04-28 12:00] VITALS: BP 144/89; PULSE 83; RESP 16; TEMP 36.4; O2SAT 99
--- NOTE | 2022-04-28 13:50 | NURSING ---
Pt BP slightly elevated. pt talking on the phone and then with pharmacy staff. pt also wanting to go into [facility] to feed infant before discharge. Talked with patient about the signs and symptoms to watch for with elevated BP. encouraged patient to continue to take BP at home and call office if she has any concerns. Pt states understanding.
--- NOTE | 2022-05-02 13:02 | NURSING ---
Follow up phone call attempted. No answer. Left voicemail for patient
== END 2022-04-28 13:40 | disposition home or self-care (01) | DRG 787 ==
LOC: WPOUT 04-27 09:09
PROVIDERS: Admitting Provider Obstetrics & Gynecology; PCP Family Medicine; Visit Provider Obstetrics & Gynecology
PROC: 10D00Z1 Extraction of Products of Conception, Low, Open Approach (ICD-10-PCS; CPT 59514; principal; 2022-04-25 07:15)
DX: O32.1XX0 Maternal care for breech presentation, not applicable or unspecified (principal); D68.61 Antiphospholipid syndrome; O99.12 Other diseases of the blood and blood-forming organs and certain disorders involving the immune mechanism complicating childbirth; O14.94 Unspecified pre-eclampsia, complicating childbirth; F17.200 Nicotine dependence, unspecified, uncomplicated; O99.334 Smoking (tobacco) complicating childbirth; Z3A.37 37 weeks gestation of pregnancy; Z37.0 Single live birth; Z79.01 Long term (current) use of anticoagulants
CPT/HCPCS: 36415; 59025; 59050; 82565; 82570; 84156; 84450; 84460; 84550; 85027; 86703; 86780; 86803; 86850; 86900; 86901; 87340; 87426; 87491; 87591; 99218; J7120; A4216; G0378; J2405

== ENCOUNTER → 2022-06-07 | Outpatient (CLI) | payer OTHER, SELFPAY ==
[2022-06-14 17:27] LABS: HPV Reflexed? NOT INDICATED
== END | disposition home or self-care (01) ==
PROVIDERS: PCP Family Medicine; Visit Provider Obstetrics & Gynecology
DX: Z12.4 Encounter for screening for malignant neoplasm of cervix (principal)
CPT/HCPCS: 88175; G0145